=== PATIENT | female | born 1965 | race Caucasian/White ===

== ENCOUNTER → 2020-01-18 | Outpatient (CLI) | payer MEDICAID ==
[2017-12-11 15:18] VITALS: BP 139/74
[~2020-01-18] MED LIST: AMLO5TAB10 PO; ATOR20TA PO; FLUT1DIS5 IH; PROVENTIL HFA6.7 GM IH
--- NOTE | 2020-01-18 11:57 | CARD ---
MR#: [id number] Date of Study: 01/18/2020 Ordering Physician: KEN MARISCAL, Referring Physician: KEN MARISCAL, Tech: Macy Linares APPROVED REPORT EXAM: Two-dimensional and M-mode echocardiogram with Doppler and color Doppler. Other Information Quality : AverageHR: 61bpm Technically limited study due to body habitus. INDICATION Pre-Op RISK FACTORS Hypertension Hyperlipidemia Smoking 2D DIMENSIONS RVDd3.2 (2.9-3.5cm)Left Atrium(2D)3.3 (1.6-4.0cm) IVSd1.3 (0.7-1.1cm)Aortic Root(2D)2.6 (2.0-3.7cm) LVDd4.5 (3.9-5.9cm)LVOT Diameter1.9 (1.8-2.4cm) PWd1.1 (0.7-1.1cm)LVDs3.2 (2.5-4.0cm) FS (%) 27.5 %SV49.0 ml Aortic Valve AoV Peak Joe.141.5cm/sAoV VTI27.5cm AO Peak GR.8.0mmHgLVOT Peak Joe.115.9cm/s LVOT VTI 23.09cmAO Mean GR.4mmHg FROY (VMAX)1.11kw6WVJ (VTI)2.33cm2 Mitral Valve MV E Gcfbarte40.5cm/sMV DECEL MTWZ137yw MV A Tozxuvuz68.3cm/sMV E Mean Gr.1mmHg MV NGP13weL/A Ratio1.5 MVA (PHT)4.23cm2 TDI E/Lateral E'12.0E/Medial E'13.4 Pulmonary Valve PV Peak Evokknws01.6cm/sPV Peak Grad.4mmHg Tricuspid Valve TR P. Sxtlmfen214ff/sTR Peak Gr.21mmHg Pulmonary Vein S1 Jdaxsfbl31.4cm/sD2 Sqzdeprl51.5cm/s PVa szjjahct429exkr LEFT VENTRICLE The left ventricle is normal size. There is mild concentric left ventricular hypertrophy. The left ve ntricular systolic function is normal and the ejection fraction is within normal range. The Ejection Fraction is 50-55%. There is normal LV segmental wall motion. Transmitral Doppler flow pattern is Gra de II-pseudonormal filling dynamics. RIGHT VENTRICLE The right ventricle is normal size. There is normal right ventricular wall thickness. The right ventr icular systolic function is normal. ATRIA The left atrium size is normal. The right atrium size is normal. The interatrial septum is intact wit h no evidence for an atrial septal defect or patent foramen ovale as noted on 2-D or Doppler imaging. AORTIC VALVE The aortic valve is normal in structure and function. Doppler and Color Flow revealed trace aortic re gurgitation. There is no significant aortic valvular stenosis. Calculated aortic valve area is 1.90 c m2 with maximum pressure gradient of 10 mmHg and mean pressure gradient of 5 mmHg. MITRAL VALVE The mitral valve is normal in structure and function. There is no evidence of mitral valve prolapse. There is no mitral valve stenosis. Doppler and Color Flow revealed no mitral valve regurgitation note d. TRICUSPID VALVE The tricuspid valve is normal in structure and function. Doppler and Color Flow revealed trace tricus pid valve regurgitation with an estimated PAP of 24 mmHg. There is no tricuspid valve stenosis. PULMONIC VALVE The pulmonic valve is not well visualized. Doppler and Color Flow revealed no pulmonic valvular regur gitation. GREAT VESSELS The aortic root is normal in size. The ascending aorta is normal in size. The IVC is normal in size a nd collapses >50% with inspiration. PERICARDIAL EFFUSION There is no evidence of significant pericardial effusion. Critical Notification Critical Value: No <Conclusion> The left ventricle is normal size. The left ventricular systolic function is normal and the ejection fraction is within normal range. The Ejection Fraction is 50-55%. There is mild concentric left ventricular hypertrophy. Doppler and Color Flow revealed trace aortic regurgitation. There is no significant aortic valvular stenosis. Doppler and Color Flow revealed no mitral valve regurgitation noted. Doppler and Color Flow revealed trace tricuspid valve regurgitation with an estimated PAP of 24 mmHg. Signed by : Johnson Coronado MD Electronically Approved : 01/18/2020 11:56:48
== END | disposition home or self-care (01) ==
LOC: ECHO 09:00
PROVIDERS: ATTEND Internal Medicine Cardiovascular Disease
DX: Z01.810 Encounter for preprocedural cardiovascular examination (principal); I51.7 Cardiomegaly; I25.2 Old myocardial infarction; Z87.891 Personal history of nicotine dependence
CPT/HCPCS: 93306

== ENCOUNTER 2020-04-01 16:57 | Inpatient (IN) | payer MEDICAID ==
[~2020-04-01] VITALS: Ht 149.9 cm; Wt 94.1 kg
[~2020-04-01 16:57] MED LIST changes: +AMLO-186 PO; -AMLO5TAB10 PO
[2020-04-01] MEDS ORDERED: methylPREDNISolone SOD SUCC PF 125 MG/2 ML VIAL. IV ONE (17:45)
[2020-04-01 18:14] LABS: BASO % 1 % (0-3); EOS # 0.3 x10^3/uL (0.0-0.7); EOS % 5 % (0-3); HEMATOCRIT 37.6 % (36.0-47.0); HEMOGLOBIN 12.6 g/dL (12.0-15.5); LYMPH # 1.9 x10^3/uL (1.0-4.8); LYMPH % 34 % (24-48); MEAN CORPUSCULAR HEMOGLOBIN 32 pg (25-35); MEAN CORPUSCULAR HGB CONC 34 g/dL (31-37); MEAN CORPUSCULAR VOLUME 96 fL (79-100); MONO # 0.5 x10^3/uL (0.0-1.1); MONO % 9 % (0-9); NEUT # 2.8 x10^3/uL (1.8-7.7); NEUT % 51 % (31-73); PLATELET COUNT 200 x10^3/uL (140-400); RED BLOOD COUNT 3.93 x10^6/uL (3.50-5.40); RED CELL DISTRIBUTION WIDTH 13.3 % (11.5-14.5); WHITE BLOOD COUNT 5.5 x10^3/uL (4.0-11.0)
--- NOTE | 2020-04-01 18:16 | PHYS DOC ---
Past Medical History Past Medical History: Other Additional Past Medical Histor: cocaine abuse Past Surgical History: Other Additional Past Surgical Histo: dental, L shoulder, cataracts Smoking Status: Current Every Day Smoker Alcohol Use: None General Adult EDM: Chief Complaint: GENERALIZED BODY ACHES HPI: HPI: Patient is a 54 year old female who presents with cocaine relapse and usage 2 days ago. She then began having hand and lower leg swelling that is no longer there today. She also complains of dizziness, blurred vision, right chest sharp pain that radiates to the right arm that is intermittent, shortness of air, cough. Patient states 2 weeks ago she had tooth extractions, 2 months ago she had cataracts, February 25 she had shoulder replacement surgery. Patient is also a smoker. She denies any pain at this time. Review of Systems: Review of Systems: Constitutional: Denies fever or chills. [] Eyes: Denies change in visual acuity. [] HENT: Denies nasal congestion or sore throat. [] Respiratory: + cough or +shortness of breath. [] Cardiovascular: + chest pain or +edema. [] GI: Denies abdominal pain, nausea, vomiting, bloody stools or diarrhea. [] : Denies dysuria. [] Musculoskeletal: Denies back pain or joint pain. [] Integument: Denies rash. [] Neurologic: Denies headache, focal weakness or sensory changes. + Dizziness [] Endocrine: Denies polyuria or polydipsia. [] Lymphatic: Denies swollen glands. [] Psychiatric: Denies depression or anxiety. [] Heart Score: HEART Score for Chest Pain: HEART Score for Chest Pain Response (Comments) Value History Slighlty/Non-Suspicious 0 ECG Normal 0 Age >45 - < 65 1 Risk Factors 1 or 2 Risk Factors 1 Troponin < Normal Limit 0 Total 2 Risk Factors: Risk Factors: DM, Current or recent (<one month) smoker, HTN, HLP, family history of CAD, obesity. Risk Scores: Score 0 - 3: 2.5% MACE over next 6 weeks - Discharge Home Score 4 - 6: 20.3% MACE over next 6 weeks - Admit for Clinical Observation Score 7 - 10: 72.7% MACE over next 6 weeks - Early Invasive Strategies Current Medications: Current Medications Medications (Trade) Dose Ordered Sig/Osvaldo Start Time Stop Time Status Last Admin Dose Admin Methylprednisolone Sodium Succinate (SOLU-Medrol 125MG VIAL) 125 mg 1X ONCE 04/01/20 17:45 04/01/20 17:46 DC Allergies: Allergies: Allergies Coded Allergies Type Severity Reaction Last Updated Verified ciprofloxacin Allergy Severe rash 12/10/17 Yes morphine Allergy Severe red vein 12/10/17 Yes latex Allergy Intermediate Rash 12/10/17 Yes Physical Exam: PE: Constitutional: Well developed, well nourished, no acute distress, non-toxic appearance. [] HENT: Normocephalic, atraumatic, bilateral external ears normal, oropharynx moist, no oral exudates, nose normal. [] Eyes: PERRLA, EOMI, conjunctiva normal, no discharge. [] Neck: Normal range of motion, no tenderness, supple, no stridor. [] Cardiovascular:Heart rate regular rhythm, no murmur [] Lungs & Thorax: Bilateral upper breath sounds clear and lower diminished to auscultation [] Abdomen: Bowel sounds normal, soft, no tenderness, no masses, no pulsatile masses. [] Skin: Warm, dry, no erythema, no rash. [] Back: No tenderness, no CVA tenderness. [] Extremities: No tenderness, no cyanosis, no clubbing, ROM intact, no edema. [] Neurologic: Alert and oriented X 3, normal motor function, normal sensory function, no focal deficits noted. [] Psychologic: Affect normal, judgement normal, mood normal. [] Current Patient Data: Vital Signs: Vital Signs Date Time Temp Pulse Resp B/P (MAP) Pulse Ox O2 Delivery O2 Flow Rate FiO2 04/01/20 17:10 98.2 81 16 153/86 (108) 100 Room Air 98.2 EKG: EK and read by Dr. Rosenbaum as sinus rhythm and no STEMI. [] Radiology/Procedures: Radiology/Procedures: [] Impression: [facility] [address] [place] [address] IMAGING REPORT Signed PATIENT: OMER BRAVO ACCOUNT: [id number] : 1965 LOCATION: ER AGE: 54 SEX: F EXAM STATUS: REG ER ORD. PHYSICIAN: MARIAJOSE VELEZ APRN REASON: cough, soa 21 PROCEDURE: PORTABLE CHEST 1V Exam: Chest one view INDICATION: Cough TECHNIQUE: Frontal view of the chest Comparisons: None FINDINGS: Heart is enlarged. Pulmonary vessels are within normal limits. The lung and pleural spaces are clear. Left shoulder arthroplasty is noted. IMPRESSION: No acute pulmonary process. Electronically signed by: Rosaura Bui MD (04/01/2020 7:26 PM) [facility] DICTATED and SIGNED BY: ROSAURA BUI MD DATE: 04/01/201925 [facility] [address] [place] [address] IMAGING REPORT Signed PATIENT: OMER BRAVO ACCOUNT: [id number] : 1965 LOCATION: ER AGE: 54 SEX: F EXAM STATUS: REG ER ORD. PHYSICIAN: MARIAJOSE VELEZ APRN REASON: dizziness PROCEDURE: CT HEAD WO CONTRAST CT scan of the head without contrast 04/01/2020 Clinical History: Dizziness. Technique: Unenhanced, contiguous, 5 mm axial sections were obtained through the head. One or more of the following individualized dose reduction techniques were utilized for this study: 1. Automated exposure control. 2. Adjustment of the mA and/or kV according to patient size. 3. Use of iterative reconstruction technique. Findings: Comparison study is dated 11/16/2019. The ventricles and sulci are within normal limits in size and configuration. No acute parenchymal abnormality is seen. No extra-axial fluid collection is noted. No skull fracture is seen. Impression: No acute intracranial abnormality is seen. Electronically signed by: Esvin Dc MD (04/01/2020 7:00 PM) [id number] DICTATED and SIGNED BY: ESVIN DC MD DATE: 04/01/20 [id number] [place], [place] [id number] IMAGING REPORT Signed PATIENT: OMER BRAVO ACCOUNT: [id number] : 1965 LOCATION: ER AGE: 54 SEX: F EXAM STATUS: REG ER ORD. PHYSICIAN: MARIAJOSE VELEZ APRN REASON: check for dissection, soa, cough, chest pain, dizzy, high lactic and dimer PROCEDURE: CT ANGIO CHEST ABD PELVIS EXAM: CT CHEST WITH CONTRAST - PULMONARY ANGIOGRAM CT ABDOMEN AND PELVIS WITH CONTRAST INDICATION: Check per dissection. Shortness of breath, cough, chest pain, dizzy, high lactic acid d-dimer. COMPARISON: None TECHNIQUE: Helical CT of the chest abdomen, and pelvis performed after the administration of 100 mL Omnipaque 350 intravenous contrast in angiographic phase. Coronal and sagittal 3D MIP reformations were obtained. One or more of the following individualized dose reduction techniques were utilized for this examination: 1. Automated exposure control 2. Adjustment of the mA and/or kV according to patient size 3. Use of iterative reconstruction technique. FINDINGS: AORTA: The aorta is normal in caliber. No aortic dissection. No calcified atherosclerosis. Great vessel origins are widely patent. There is an aberrant right subclavian artery. Abdominal branch origins are widely patent. CHEST: Pulmonary Arteries: Contrast bolus is adequate. There is no acute pulmonary embolism. Heart/Systemic Vasculature: The heart is normal in size. No pericardial effusion. There are coronary artery calcifications. The thoracic aorta is normal in caliber. An aberrant right subclavian artery is noted. Mediastinum and kush: No lymphadenopathy. Lungs and pleura: The lungs are clear. No pleural effusion. Neck/Axilla/Body Wall: Unremarkable. Bones: No acute osseous abnormality. Mild thoracic degenerative disc disease. ABDOMEN AND PELVIS: Liver: Normal. Gallbladder/Biliary Tree: Gallbladder is mildly contracted. Bile ducts are normal. Pancreas: Normal. Spleen: Normal. Adrenal Glands: Normal. Kidneys/Ureters/Bladder: Kidneys are normal in size and enhance symmetrically. No hydronephrosis. And bladder are normal. Reproductive Organs: Uterus is anteverted. No adnexal mass. Stomach, small bowel, and colon: Stomach is normal. There is no small bowel obstruction. Colon and appendix are normal. Lymph Nodes: No lymphadenopathy. Peritoneum and retroperitoneum: No free fluid or free air. Bones: No acute osseous abnormality. Moderate lumbar degenerative disc disease, greatest at L3-L4 and L4-L5 where there is canal and foraminal narrowing. IMPRESSION: 1. No aortic dissection or aneurysm. No acute pulmonary embolism. 2. No acute abnormality in the chest, abdomen, or pelvis. 3. Moderate lumbar degenerative disc disease, greatest at L3-L4 and L4-L5 where there is canal and foraminal narrowing. Electronically signed by: Alyse Lyn MD (04/01/2020 8:25 PM) [id number] DICTATED and SIGNED BY: ALYSE LYN MD DATE: 04/01/202024 Course & Med Decision Making: Course & Med Decision Making Pertinent Labs and Imaging studies reviewed. (See chart for details) COVID-19 CRITERIA: The patient was evaluated during the global COVID-19 pandemic, and that diagnosis was suspected/considered upon their initial presentation. Their evaluation, treatment and testing was consistent with current guidelines for patients who present with complaints or symptoms that may be related to COVID-19. See HPI. No extremity edema. Lungs are clear in upper lobes and diminished in lower lobes. Speaks in full clear sentences. Skin pink warm and dry. Vital signs are within normal limits. Afebrile. Patient does have a wet loose sounding cough. EKG shows sinus rhythm and no STEMI. Lactic acid elevated, lipase elevated, urinalysis shows infection. She is also dehydrated. Patient is given fluids through her IV and Zosyn. CT abdomen pelvis shows no acute findings. Dr Carver states the patient has clinical pancreatitis. Patient admitted to Dr Kent for fluids. [] Adriana Disclaimer: Adriana Disclaimer: This electronic medical record was generated, in whole or in part, using a voice recognition dictation system. COVID-19 Patient Risks: Age 65 or older: No Sign of co-morbidity: Yes Exp to person + for COVID: No Exp to PUI: No Travel from affected area: No Lower respiratory symptoms: Yes Fever: Yes Other: No PPE Use: Full PPE with N95 mask or PAPR: Yes Departure Departure Impression: Primary Impression: Cocaine abuse Additional Impressions: Pancreatitis Qualified Codes: K85.90 - Acute pancreatitis without necrosis or infection, unspecified Urinary tract infection Qualified Codes: N39.0 - Urinary tract infection, site not specified Person under investigation for COVID-19 Disposition: 09 ADMITTED INPT THIS HOSP Admitting Physician: SHAHEEN Condition: STABLE Referrals: ROSY OLSON MD (PCP) MARIAJOSE VELEZ [employer] REPAIRER Apr 01, 2020 18:16
[2020-04-01 18:23] LABS: CALCIUM 8.2 mg/dL (8.5-10.1); CREATININE 0.8 mg/dL (0.6-1.0); GFR 75.3; POTASSIUM 3.2 mmol/L (3.5-5.1)
[2020-04-01 18:26] LABS: PROTHROMBIN TIME PATIENT 12.2 SEC (11.7-14.0)
[2020-04-01 18:29] LABS: ALBUMIN 2.8 g/dL (3.4-5.0); MAGNESIUM 1.8 mg/dL (1.8-2.4); TOTAL BILIRUBIN 0.2 mg/dL (0.2-1.0); TOTAL PROTEIN 5.6 g/dL (6.4-8.2)
[2020-04-01 18:30] LABS: D-DIMER 2.06 ug/mlFEU (0.00-0.50)
[2020-04-01] MEDS ORDERED: PIPERACILLIN/TAZOBACTAM 3.375 GM in IV NORMAL SALINE 50ML 50 ML IV ONE (19:00)
[2020-04-01] MEDS ORDERED: IV NORMAL SALINE 1000ML BAG 1,000 ML IV ONE ×2 (19:00→20:00)
--- NOTE | 2020-04-01 19:03 | RAD ---
CT scan of the head without contrast 04/01/2020 Clinical History: Dizziness. Technique: Unenhanced, contiguous, 5 mm axial sections were obtained through the head. One or more of the following individualized dose reduction techniques were utilized for this study: 1. Automated exposure control. 2. Adjustment of the mA and/or kV according to patient size. 3. Use of iterative reconstruction technique. Findings: Comparison study is dated 11/16/2019. The ventricles and sulci are within normal limits in size and configuration. No acute parenchymal abnormality is seen. No extra-axial fluid collection is noted. No skull fracture is seen. Impression: No acute intracranial abnormality is seen. Electronically signed by: Esvin Dc MD (04/01/2020 7:00 PM) [id number]
[2020-04-01] MEDS ORDERED: CONTRAST GIVEN. MC PRN (19:15)
[2020-04-01] MEDS ORDERED: IOHEXOL 350 MG/ML 100 ML VIAL. IV ONE (19:15)
[2020-04-01 19:29] LABS: BILIRUBIN,URINE NEGATIVE (NEG); CLARITY,URINE CLEAR; COLOR,URINE YELLOW; NITRITE,URINE NEGATIVE (NEG); PH,URINE 6.5 (<5.0-8.0); PROTEIN,URINE NEGATIVE (NEG-TRACE)
--- NOTE | 2020-04-01 19:29 | RAD ---
Exam: Chest one view INDICATION: Cough TECHNIQUE: Frontal view of the chest Comparisons: None FINDINGS: Heart is enlarged. Pulmonary vessels are within normal limits. The lung and pleural spaces are clear. Left shoulder arthroplasty is noted. IMPRESSION: No acute pulmonary process. Electronically signed by: Rosaura Perez MD (04/01/2020 7:26 PM) TOYA
[2020-04-01 19:35] LABS: BACTERIA,URINE MODERATE /HPF (0-FEW); RBC,URINE 0 /HPF (0-2); WBC,URINE 20-40 /HPF (0-4)
[2020-04-01 19:36] LABS: BARBITURATES NEG (NEG); BENZODIAZEPINES NEG (NEG); CANNABINOIDS NEG (NEG); COCAINE POS (NEG); METHADONE NEG (NEG); OPIATES NEG (NEG); PHENCYCLIDINE NEG (NEG)
[2020-04-01 19:41] LABS: AMPHETAMINE/METHAMPHETAMINE NEG (NEG)
[2020-04-01] MEDS ORDERED: cefTRIAXone IV Push 1 GM VIAL. IVP ONE (20:00)
--- NOTE | 2020-04-01 20:27 | RAD ---
EXAM: CT CHEST WITH CONTRAST - PULMONARY ANGIOGRAM CT ABDOMEN AND PELVIS WITH CONTRAST INDICATION: Check per dissection. Shortness of breath, cough, chest pain, dizzy, high lactic acid d-dimer. COMPARISON: None TECHNIQUE: Helical CT of the chest abdomen, and pelvis performed after the administration of 100 mL Omnipaque 350 intravenous contrast in angiographic phase. Coronal and sagittal 3D MIP reformations were obtained. One or more of the following individualized dose reduction techniques were utilized for this examination: 1. Automated exposure control 2. Adjustment of the mA and/or kV according to patient size 3. Use of iterative reconstruction technique. FINDINGS: AORTA: The aorta is normal in caliber. No aortic dissection. No calcified atherosclerosis. Great vessel origins are widely patent. There is an aberrant right subclavian artery. Abdominal branch origins are widely patent. CHEST: Pulmonary Arteries: Contrast bolus is adequate. There is no acute pulmonary embolism. Heart/Systemic Vasculature: The heart is normal in size. No pericardial effusion. There are coronary artery calcifications. The thoracic aorta is normal in caliber. An aberrant right subclavian artery is noted. Mediastinum and kush: No lymphadenopathy. Lungs and pleura: The lungs are clear. No pleural effusion. Neck/Axilla/Body Wall: Unremarkable. Bones: No acute osseous abnormality. Mild thoracic degenerative disc disease. ABDOMEN AND PELVIS: Liver: Normal. Gallbladder/Biliary Tree: Gallbladder is mildly contracted. Bile ducts are normal. Pancreas: Normal. Spleen: Normal. Adrenal Glands: Normal. Kidneys/Ureters/Bladder: Kidneys are normal in size and enhance symmetrically. No hydronephrosis. And bladder are normal. Reproductive Organs: Uterus is anteverted. No adnexal mass. Stomach, small bowel, and colon: Stomach is normal. There is no small bowel obstruction. Colon and appendix are normal. Lymph Nodes: No lymphadenopathy. Peritoneum and retroperitoneum: No free fluid or free air. Bones: No acute osseous abnormality. Moderate lumbar degenerative disc disease, greatest at L3-L4 and L4-L5 where there is canal and foraminal narrowing. IMPRESSION: 1. No aortic dissection or aneurysm. No acute pulmonary embolism. 2. No acute abnormality in the chest, abdomen, or pelvis. 3. Moderate lumbar degenerative disc disease, greatest at L3-L4 and L4-L5 where there is canal and foraminal narrowing. Electronically signed by: Alyse Lyn MD (04/01/2020 8:25 PM) [id number]
[2020-04-01] MEDS ORDERED: ONDANSETRON PF 4 MG/2 ML VIAL. IV PRN (21:00)
--- NOTE | 2020-04-01 22:31 | RAD ---
Exam: Left lower extremity venous duplex study INDICATION: Leg swelling TECHNIQUE: Using a combination of real-time ultrasound imaging and color-flow and pulse Doppler imaging techniques along with graded compression and augmentation, duplex evaluation of the deep venous systems of leftlower extremity was performed. Multiple images were obtained. Findings: There is no sonographic evidence for deep venous thrombosis involving the visualized deep venous structures of the left lower extremity. IMPRESSION: No acute DVT in the left lower extremities. Electronically signed by: Rosaura Perez MD (04/01/2020 10:28 PM) TOYA
[2020-04-02] VITALS (7 sets, daily range): BP systolic 127–161; BP diastolic 67–90
[2020-04-02] MEDS ORDERED: diphenhydrAMINE 50 MG/ML VIAL IVP ONE (02:00)
[2020-04-02] MEDS: IV NORMAL SALINE 1000ML BAG 1,000 ML IV SCH ×3 (02:01→12:51)
[2020-04-02] MEDS: fentaNYL PF VIAL 100 MCG/2 ML VIAL IV PRN ×3 (02:02→17:12)
[2020-04-02] MEDS ORDERED: OXYC1TAB19 PO (05:19)
[2020-04-02] MEDS ORDERED: vitamin d (05:19)
[2020-04-02] MEDS ORDERED: TRAZ-118 PO (05:19)
[2020-04-02] MEDS ORDERED: ALPR1TAB2 PO (05:19)
[2020-04-02] MEDS ORDERED: DULO30CA2 PO (05:19)
[2020-04-02] MEDS ORDERED: NAPR500T8 PO (05:19)
[2020-04-02] MEDS ORDERED: FURO-69 PO (05:19)
[2020-04-02] MEDS ORDERED: SPIR25TA5 PO (05:19)
[2020-04-02] MEDS ORDERED: CETI10TA74 PO (05:19)
--- NOTE | 2020-04-02 08:30 | NUR ---
patient wants flu shot when she is discharged
[2020-04-02] MEDS: diphenhydrAMINE 50 MG/ML VIAL IVP PRN ×2 (08:32→17:12)
[2020-04-02] MEDS ORDERED: FLU VACC QS 2020-21(6MOS+)/PF 0.5 ML SYRINGE. VAX IM ONE (09:00)
--- NOTE | 2020-04-02 12:34 | PDOC2 ---
GI CONSULT Date of Service: DATE: 04/02/20 TIME: 12:11 Reason For Consult: Elevated lipase HPI: HPI: 54 y/o female presented to ER with various complaints, including atypical chest pain. During evaluation, noted to have mildly elevated lipase and we were asked to see. No h/o pancreatitis. CT here OK save diverticulosis. Prior ultrasound at [facility] with adenomyosis/cholesterolosis of GB, but no stones. Will occasionally binge drink, but not daily drinker. Has had atypical chest pain; pain this occasion would transiently respond to SL NTG. Had cath in 2018 with moderate single vessel disease (LAD). Fairly frequent heartburn w/o dysphagia; really takes nothing for this. Treated empirically for "ulcer" years ago w/o documentation. Frequent pc bloating and early satiety. No prior EGD, but one planned in the future as part of pre- bariatric surgery w/u. No liver history, but concerned as father had HCV. Had hepatitis serologies at [facility] in September negative. Smokes. H/o cocaine abuse; briefly clean than recent relapse, precipitating current issues along with at least subjective extremity swelling. Fluctuating bowel habits from diarrhea to constipation. Cramps usually precede diarrhea and improved after purge. Has seen blood in stool, but not recently; has h/o hemorroids. Colonoscopy age 52 negative except diverticulosis. GIFH positive for colon polyps in both parents. Wt/appetite OK. Nearly daily AM dyspepsia and emesis. Ok if eats a little. PMH: PMH: NSTEMI 2018, cath as above, HTN, PTSD, depression, anxiety, asthma, OA, FMS. S/P x 2, right knee and left shoulder joint prostheses. Social History: ALCOHOL: occassional Drugs: Cocaine ROS: GEN: Denies fevers, chills, sweats HEENT: Some visual disturbance. CV: Atypical as above. RESP: Denies shortness of air, cough GI: Per HPI : Denies hematuria, dysuria ENDO: Denies weight changes NEURO: Denies confusion, dizziness MSK: Denies weakness, joint pain. Says recent extremities swelling SKIN: Denies jaundice, pruritus Vitals: Vitals: Vital Signs Date Time Temp Pulse Resp B/P (MAP) Pulse Ox O2 Delivery O2 Flow Rate FiO2 04/02/20 08:00 Room Air 04/02/20 07:00 96.9 78 20 150/89 (109) 97 96.9 Labs: Labs: Laboratory Tests Test 04/01/20 18:00 04/01/20 19:00 04/02/20 03:30 White Blood Count 5.5 x10^3/uL (4.0-11.0) Red Blood Count 3.93 x10^6/uL (3.50-5.40) Hemoglobin 12.6 g/dL (12.0-15.5) Hematocrit 37.6 % (36.0-47.0) Mean Corpuscular Volume 96 fL (79-100) Mean Corpuscular Hemoglobin 32 pg (25-35) Mean Corpuscular Hemoglobin Concent 34 g/dL (31-37) Red Cell Distribution Width 13.3 % (11.5-14.5) Platelet Count 200 x10^3/uL (140-400) Neutrophils (%) (Auto) 51 % (31-73) Lymphocytes (%) (Auto) 34 % (24-48) Monocytes (%) (Auto) 9 % (0-9) Eosinophils (%) (Auto) 5 % (0-3) Basophils (%) (Auto) 1 % (0-3) Neutrophils # (Auto) 2.8 x10^3/uL (1.8-7.7) Lymphocytes # (Auto) 1.9 x10^3/uL (1.0-4.8) Monocytes # (Auto) 0.5 x10^3/uL (0.0-1.1) Eosinophils # (Auto) 0.3 x10^3/uL (0.0-0.7) Basophils # (Auto) 0.0 x10^3/uL (0.0-0.2) Prothrombin Time 12.2 SEC (11.7-14.0) Prothromb Time International Ratio 0.9 (0.8-1.1) D-Dimer (Bonnie) 2.06 ug/mlFEU (0.00-0.50) Sodium Level 145 mmol/L (136-145) Potassium Level 3.2 mmol/L (3.5-5.1) Chloride Level 107 mmol/L (98-107) Carbon Dioxide Level 30 mmol/L (21-32) Anion Gap 8 (6-14) Blood Urea Nitrogen 11 mg/dL (7-20) Creatinine 0.8 mg/dL (0.6-1.0) Estimated GFR (Cockcroft-Gault) 75.3 BUN/Creatinine Ratio 14 (6-20) Glucose Level 197 mg/dL (70-99) Lactic Acid Level 3.3 mmol/L (0.4-2.0) 2.2 mmol/L (0.4-2.0) Calcium Level 8.2 mg/dL (8.5-10.1) Magnesium Level 1.8 mg/dL (1.8-2.4) Total Bilirubin 0.2 mg/dL (0.2-1.0) Aspartate Amino Transf (AST/SGOT) 14 U/L (15-37) Alanine Aminotransferase (ALT/SGPT) 23 U/L (14-59) Alkaline Phosphatase 101 U/L (46-116) Creatine Kinase 53 U/L (26-192) Troponin I Quantitative < 0.017 ng/mL (0.000-0.055) < 0.017 ng/mL (0.000-0.055) SS-Uvy-H-Type Natriuretic Peptide 546 pg/mL (0-124) Total Protein 5.6 g/dL (6.4-8.2) Albumin 2.8 g/dL (3.4-5.0) Albumin/Globulin Ratio 1.0 (1.0-1.7) Lipase 591 U/L (73-393) Urine Collection Type Unknown Urine Color Yellow Urine Clarity Clear Urine pH 6.5 (<5.0-8.0) Urine Specific Elk 1.025 (1.000-1.030) Urine Protein Negative mg/dL (NEG-TRACE) Urine Glucose (UA) 100 mg/dL (NEG) Urine Ketones (Stick) Negative mg/dL (NEG) Urine Blood Negative (NEG) Urine Nitrite Negative (NEG) Urine Bilirubin Negative (NEG) Urine Urobilinogen Dipstick 1.0 mg/dL (0.2 mg/dL) Urine Leukocyte Esterase Moderate (NEG) Urine RBC 0 /HPF (0-2) Urine WBC 20-40 /HPF (0-4) Urine Squamous Epithelial Cells Mod /LPF Urine Bacteria Moderate /HPF (0-FEW) Urine Mucus Mod /LPF Urine Opiates Screen Neg (NEG) Urine Methadone Screen Neg (NEG) Urine Barbiturates Neg (NEG) Urine Phencyclidine Screen Neg (NEG) Urine Amphetamine/Methamphetamine Neg (NEG) Urine Benzodiazepines Screen Neg (NEG) Urine Cocaine Screen Pos (NEG) Urine Cannabinoids Screen Neg (NEG) Urine Ethyl Alcohol Neg (NEG) Mildly elevated lipase, less than 3x normal. Tox screen positive for cocaine. Normal troponins. Allergies: Coded Allergies: ciprofloxacin (Verified Allergy, Severe, rash, 12/10/17) morphine (Verified Allergy, Severe, red vein, 12/10/17) latex (Verified Allergy, Intermediate, Rash, 12/10/17) Medications: Current Medications Medications (Trade) Dose Ordered Sig/Osvaldo Route PRN Reason Start Time Stop Time Status Last Admin Dose Admin Methylprednisolone Sodium Succinate (SOLU-Medrol 125MG VIAL) 125 mg 1X ONCE IV 04/01/20 17:45 04/01/20 17:46 DC 04/01/20 18:36 Sodium Chloride 1,000 ml @ 1,000 mls/hr 1X ONCE IV 04/01/20 19:00 04/01/20 19:59 DC 04/01/20 19:14 Piperacillin Sod/ Tazobactam Sod 3.375 gm/Sodium Chloride 50 ml @ 100 mls/hr 1X ONCE IV 04/01/20 19:00 04/01/20 19:29 DC 04/01/20 19:15 Iohexol (Omnipaque 350 Mg/ml) 100 ml 1X ONCE IV 04/01/20 19:15 04/01/20 19:16 DC 04/01/20 19:38 Sodium Chloride 1,000 ml @ 1,000 mls/hr 1X ONCE IV 04/01/20 20:00 04/01/20 20:59 DC 04/01/20 21:05 Fentanyl Citrate (Fentanyl 2ml Vial) 50 mcg PRN Q1HR PRN IV PAIN 04/01/20 21:00 04/02/20 20:59 04/02/20 02:02 Sodium Chloride 1,000 ml @ 125 mls/hr Q8H IV 04/01/20 20:51 04/02/20 20:50 04/02/20 08:32 Diphenhydramine HCl (Benadryl) 50 mg 1X ONCE IVP 04/02/20 02:00 04/02/20 02:01 DC 04/02/20 02:01 Diphenhydramine HCl (Benadryl) 25 mg PRN Q6HRS PRN IVP ITCHING 04/02/20 02:00 04/02/20 08:32 PE: GEN: NAD HEENT: Atraumatic, PERRLA LUNGS: CTAB HEART: RRR, no murmurs ABD: NABS, S/ND/mild upper abdominal tenderness, no masses EXTREMITY: No edema SKIN: No rashes, no jaundice NEURO/PSYCH: A & O 3 A/P: A/P: IMP: Elevated lipase of uncertain significance. Clinically don't believe this is pancreatitis with bad story, normal imaging, and <3x normal lipase. GERD; may account for the chest pain as well. Untreated. Esophageal chest pain may respond to NTG. IBS Diverticulosis, uncomplicated. FH colon polyp; UTD on screening. Abnormal GB on imaging, but no stones. REC: PPI empirically. Would consider cardiology opinion. OK with me to feed. Does merit EGD sometime; no crow. Stop cocaine use. ELLIE JOHNSON MD Apr 02, 2020 12:34
--- NOTE | 2020-04-02 13:29 | PDOC1 ---
History and Physical Date of Admission Date of Admission DATE: 04/02/20 TIME: 13:26 Identification/Chief Complaint Chief Complaint Chest radiograph Heart is enlarged. Pulmonary vessels are within normal limits. The lung and pleural spaces are clear. Left shoulder arthroplasty is noted. IMPRESSION: No acute pulmonary process. CT scan of the head without contrast 04/01/2020 The ventricles and sulci are within normal limits in size and configuration. No acute parenchymal abnormality is seen. No extra-axial fluid collection is noted. No skull fracture is seen. Impression: No acute intracranial abnormality is seen. CT CHEST WITH CONTRAST - PULMONARY ANGIOGRAM CT ABDOMEN AND PELVIS WITH CONTRAST AORTA: The aorta is normal in caliber. No aortic dissection. No calcified atherosclerosis. Great vessel origins are widely patent. There is an aberrant right subclavian artery. Abdominal branch origins are widely patent. CHEST: Pulmonary Arteries: Contrast bolus is adequate. There is no acute pulmonary embolism. Heart/Systemic Vasculature: The heart is normal in size. No pericardial effusion. There are coronary artery calcifications. The thoracic aorta is normal in caliber. An aberrant right subclavian artery is noted. Mediastinum and kush: No lymphadenopathy. Lungs and pleura: The lungs are clear. No pleural effusion. Neck/Axilla/Body Wall: Unremarkable. Bones: No acute osseous abnormality. Mild thoracic degenerative disc disease. ABDOMEN AND PELVIS: Liver: Normal. Gallbladder/Biliary Tree: Gallbladder is mildly contracted. Bile ducts are normal. Pancreas: Normal. Spleen: Normal. Adrenal Glands: Normal. Kidneys/Ureters/Bladder: Kidneys are normal in size and enhance symmetrically. No hydronephrosis. And bladder are normal. Reproductive Organs: Uterus is anteverted. No adnexal mass. Stomach, small bowel, and colon: Stomach is normal. There is no small bowel obstruction. Colon and appendix are normal. Lymph Nodes: No lymphadenopathy. Peritoneum and retroperitoneum: No free fluid or free air. Bones: No acute osseous abnormality. Moderate lumbar degenerative disc disease, greatest at L3-L4 and L4-L5 where there is canal and foraminal narrowing. IMPRESSION: 1. No aortic dissection or aneurysm. No acute pulmonary embolism. 2. No acute abnormality in the chest, abdomen, or pelvis. 3. Moderate lumbar degenerative disc disease, greatest at L3-L4 and L4-L5 where there is canal and foraminal narrowing. Source Source: Patient History of Present Illness History of Present Illness Ms Burgos is a 54 yo F w/ PMHx polysubstance abuse, Hypertension, hyperlipidemia, bronchial asthma/COPD who presents with cocaine relapse and usage 2 days prior to. She then began having hand and lower leg swelling that is no longer there today. She also complains of dizziness, blurred vision, right chest sharp pain that radiates to the right arm that is intermittent, shortness of air, cough. Patient states 2 weeks ago she had tooth extractions, 2 months ago she had catar acts, February 25 she had shoulder replacement surgery. Patient is also a smoker. She still has abdominal pain but is asking for food. EKG sinus rhythm and no STEMI. This radiograph, CT angiogram chest abdomen pelvis both negative for acute findings. CT head negative for acute findings. Labs with elevated lipase, K3.2, urine drug screen positive for cocaine, troponin negative x2, lactic acid elevated. She has history of coronary artery disease status post myocardial infarction 20 years ago related to cocaine abuse. The patient has also nicotine dependence, alcohol abuse and cocaine abuse. Cardiac cath in 2018 with minimal LAD disease, no interventions at that time, counseled on cocaine cessation. She is admitted for further care Past Medical History Cardiovascular: CAD, HTN, Hyperlipidemia Pulmonary: Asthma GI: GERD Endocrine: Other Past Surgical History Past Surgical History: , Other Family History Family History: Heart Disease Social History Smoke: 1 pack per day ALCOHOL: occassional Drugs: Cocaine Current Problem List Problem List Problems Medical Problems: (1) Pancreatitis Status: Acute (2) Person under investigation for COVID-19 Status: Acute (3) Urinary tract infection Status: Acute Current Medications Current Medications Current Medications Methylprednisolone Sodium Succinate (SOLU-Medrol 125MG VIAL) 125 mg 1X ONCE IV Last administered on 04/01/20at 18:36; Start 04/01/20 at 17:45; Stop 04/01/20 at 17:46; Status DC Sodium Chloride 1,000 ml @ 1,000 mls/hr 1X ONCE IV Last administered on 04/01/20at 19:14; Start 04/01/20 at 19:00; Stop 04/01/20 at 19:59; Status DC Piperacillin Sod/ Tazobactam Sod 3.375 gm/Sodium Chloride 50 ml @ 100 mls/hr 1X ONCE IV Last administered on 04/01/20at 19:15; Start 04/01/20 at 19:00; Stop 04/01/20 at 19:29; Status DC Iohexol (Omnipaque 350 Mg/ml) 100 ml 1X ONCE IV Last administered on 04/01/20at 19:38; Start 04/01/20 at 19:15; Stop 04/01/20 at 19:16; Status DC Info (CONTRAST GIVEN -- Rx MONITORING) 1 each PRN DAILY PRN MC SEE COMMENTS; Start 04/01/20 at 19:15; Stop 04/03/20 at 19:14 Ceftriaxone Sodium (Rocephin) 1 gm 1X ONCE IVP ; Start 04/01/20 at 20:00; Stop 04/01/20 at 20:01; Status UNV Sodium Chloride 1,000 ml @ 1,000 mls/hr 1X ONCE IV Last administered on 04/01/20at 21:05; Start 04/01/20 at 20:00; Stop 04/01/20 at 20:59; Status DC Ondansetron HCl (Zofran) 4 mg PRN Q8HRS PRN IV NAUSEA/VOMITING; Start 04/01/20 at 21:00; Stop 04/02/20 at 20:59 Fentanyl Citrate (Fentanyl 2ml Vial) 50 mcg PRN Q1HR PRN IV PAIN Last administered on 04/02/20at 02:02; Start 04/01/20 at 21:00; Stop 04/02/20 at 20:59 Sodium Chloride 1,000 ml @ 125 mls/hr Q8H IV Last administered on 04/02/20at 08:32; Start 04/01/20 at 20:51; Stop 04/02/20 at 20:50 Diphenhydramine HCl (Benadryl) 50 mg 1X ONCE IVP Last administered on 04/02/20at 02:01; Start 04/02/20 at 02:00; Stop 04/02/20 at 02:01; Status DC Diphenhydramine HCl (Benadryl) 25 mg PRN Q6HRS PRN IVP ITCHING Last administered on 04/02/20at 08:32; Start 04/02/20 at 02:00 Influenza Virus Vaccine Quadrival (Fluzone Quad Syringe) 0.5 ml ONCE ONCE VAX IM ; Start 04/02/20 at 09:00; Stop 11/14/20 at 09:01; Status DC Pantoprazole Sodium (Protonix) 40 mg DAILYAC PO ; Start 04/02/20 at 13:30 Active Scripts Active Reported Naproxen 500 Mg Tablet.dr 1 Tab PO DAILY Percocet 7.5-325 Mg Tablet (Oxycodone/Acetaminophen) 1 Each Tablet 1 Tab PO PRN TID PRN MDD 3 Tablet(s) 30 Days [vitamin d] Xanax (Alprazolam) 1 Mg Tablet 1 Tab PO TID PRN Trazodone Hcl 50 Mg Tablet 1 Tab PO QHS Zyrtec (Cetirizine Hcl) 10 Mg Tablet 1 Tab PO DAILY Lasix (Furosemide) 20 Mg Tablet 1 Tab PO DAILY 30 Days Cymbalta (Duloxetine Hcl) 30 Mg Capsule.dr 30 Mg PO BID Spironolactone 25 Mg Tablet 1 Tab PO DAILY Advair 500-50 Diskus (Fluticasone/Salmeterol) 1 Each Disk.w.dev 1 Puff IH BID Proventil Hfa Inhaler (Albuterol Sulfate) 6.7 Gm Hfa.aer.ad 1 Puff IH PRN Q4HRS PRN Allergies Allergies: Coded Allergies: ciprofloxacin (Verified Allergy, Severe, rash, 12/10/17) morphine (Verified Allergy, Severe, red vein, 12/10/17) latex (Verified Allergy, Intermediate, Rash, 12/10/17) ROS General: YES: Fatigue, Malaise; No: Chills, Night Sweats, Appetite, Other PSYCHOLOGICAL ROS: No: Anxiety, Behavioral Disorder, Concentration difficultie, Decreased libido, Depression, Disorientation, Hallucinations, Hostility, Irritablity, Memory difficulties, Mood Swings, Obsessive thoughts, Physical abuse, Sexual abuse, Sleep disturbances, Suicidal ideation, Other Eyes: No Blurry vision, No Decreased vision, No Double vision, No Dry eyes, No Excessive tearing, No Eye Pain, No Itchy Eyes, No Loss of vision, No Photophobia, No Scotomata, No Uses contacts, No Uses glasses, No Other HEENT: No: Heacaches, Visual Changes, Hearing change, Nasal congestion, Nasal discharge, Oral lesions, Sinus pain, Sore Throat, Epistaxis, Sneezing, Snoring, Tinnitus, Vertigo, Vocal changes, Other ALLERGY AND IMMUNOLOGY: No: Hives, Insect Bite Sensitivity, Itchy/Watery Eyes, Nasal Congestion, Post Nasal Drip, Seasonal Allergies, Other Hematological and Lymphatic: No: Bleeding Problems, Blood Clots, Blood Transfusions, Brusing, Night Sweats, Pallor, Swollen Lymph Nodes, Other ENDOCRINE: No: Breast Changes, Galactorrhea, Hair Pattern Changes, Hot Flashes, Malaise/lethargy, Mood Swings, Palpitations, Polydipsia/polyuria, Skin Changes, Temperature Intolerance, Unexpected Weight Changes, Other Breast: No New/Changing Breast Lumps, No Nipple changes, No Nipple discharge, No Other Respiratory: No: Cough, Hemoptysis, Orthopnea, Pleuritic Pain, Shortness of breath, SOB with excertion, Sputum Changes, Stridor, Tachypnea, Wheezing, Other Cardiovascular: No Chest Pain, No Palpitations, No Orthopnea, No Paroxysmal Noc. Dyspnea, No Edema, No Lt Headedness, No Other Gastrointestinal: No Nausea, No Vomiting, No Abdominal Pain, No Diarrhea, No Constipation, No Melena, No Hematochezia, No Other Genitourinary: No Dysuria, No Frequency, No Incontinence, No Hematuria, No Retention, No Discharge, No Urgency, No Pain, No Flank Pain, No Other, No , No , No , No , No , No , No Musculoskeletal: No Gait Disturbance, No Joint Pain, No Joint Stiffness, No Joint Swelling, No Muscle Pain, No Muscular Weakness, No Pain In:, No Swelling In:, No Other Neurological: No Behavorial Changes, No Bowel/Bladder ControlChng, No Confu rashard, No Dizziness, No Gait Disturbance, No Headaches, No Impaired Coord/balance, No Memory Loss, No Numbness/Tingling, No Seizures, No Speech Problems, No Tremors, No Visual Changes, No Weakness, No Other Skin: No Dry Skin, No Eczema, No Hair Changes, No Lumps, No Mole Changes, No Mottling, No Nail Changes, No Pruritus, No Rash, No Skin Lesion Changes, No Oth er, No Acne Physical Exam General: Alert, Oriented X3, Cooperative, mild distress HEENT: Atraumatic, PERRLA, EOMI, Mucous membr. moist/pink Lungs: Clear to auscultation, Normal air movement Heart: S1S2, RRR, no thrills, no rubs, no gallops, no murmurs Abdomen: Normal bowel sounds, Soft, No hepatosplenomegaly, No masses, Other (diffusely tender) Rectal Exam: not examined Extremities: No clubbing, No cyanosis, No edema, Normal pulses, No tenderness/swelling Skin: No rashes, No breakdown, No significant lesion Neuro: Normal gait, Normal speech, Strength at 5/5 X4 ext, Normal tone, Sensation intact, Cranial nerves 3-12 NL, Reflexes 2+ Psych/Mental Status: Mental status NL, Mood NL Vitals Vitals Vital Signs Date Time Temp Pulse Resp B/P (MAP) Pulse Ox O2 Delivery O2 Flow Rate FiO2 04/02/20 08:00 Room Air 04/02/20 07:00 96.9 78 20 150/89 (109) 97 96.9 Labs Labs Laboratory Tests Test 04/01/20 18:00 04/01/20 19:00 04/02/20 03:30 White Blood Count 5.5 x10^3/uL (4.0-11.0) Red Blood Count 3.93 x10^6/uL (3.50-5.40) Hemoglobin 12.6 g/dL (12.0-15.5) Hematocrit 37.6 % (36.0-47.0) Mean Corpuscular Volume 96 fL (79-100) Mean Corpuscular Hemoglobin 32 pg (25-35) Mean Corpuscular Hemoglobin Concent 34 g/dL (31-37) Red Cell Distribution Width 13.3 % (11.5-14.5) Platelet Count 200 x10^3/uL (140-400) Neutrophils (%) (Auto) 51 % (31-73) Lymphocytes (%) (Auto) 34 % (24-48) Monocytes (%) (Auto) 9 % (0-9) Eosinophils (%) (Auto) 5 % (0-3) Basophils (%) (Auto) 1 % (0-3) Neutrophils # (Auto) 2.8 x10^3/uL (1.8-7.7) Lymphocytes # (Auto) 1.9 x10^3/uL (1.0-4.8) Monocytes # (Auto) 0.5 x10^3/uL (0.0-1.1) Eosinophils # (Auto) 0.3 x10^3/uL (0.0-0.7) Basophils # (Auto) 0.0 x10^3/uL (0.0-0.2) Prothrombin Time 12.2 SEC (11.7-14.0) Prothromb Time International Ratio 0.9 (0.8-1.1) D-Dimer (Bonnie) 2.06 ug/mlFEU (0.00-0.50) Sodium Level 145 mmol/L (136-145) Potassium Level 3.2 mmol/L (3.5-5.1) Chloride Level 107 mmol/L (98-107) Carbon Dioxide Level 30 mmol/L (21-32) Anion Gap 8 (6-14) Blood Urea Nitrogen 11 mg/dL (7-20) Creatinine 0.8 mg/dL (0.6-1.0) Estimated GFR (Cockcroft-Gault) 75.3 BUN/Creatinine Ratio 14 (6-20) Glucose Level 197 mg/dL (70-99) Lactic Acid Level 3.3 mmol/L (0.4-2.0) 2.2 mmol/L (0.4-2.0) Calcium Level 8.2 mg/dL (8.5-10.1) Magnesium Level 1.8 mg/dL (1.8-2.4) Total Bilirubin 0.2 mg/dL (0.2-1.0) Aspartate Amino Transf (AST/SGOT) 14 U/L (15-37) Alanine Aminotransferase (ALT/SGPT) 23 U/L (14-59) Alkaline Phosphatase 101 U/L (46-116) Creatine Kinase 53 U/L (26-192) Troponin I Quantitative < 0.017 ng/mL (0.000-0.055) < 0.017 ng/mL (0.000-0.055) RO-Klv-L-Type Natriuretic Peptide 546 pg/mL (0-124) Total Protein 5.6 g/dL (6.4-8.2) Albumin 2.8 g/dL (3.4-5.0) Albumin/Globulin Ratio 1.0 (1.0-1.7) Lipase 591 U/L (73-393) Urine Collection Type Unknown Urine Color Yellow Urine Clarity Clear Urine pH 6.5 (<5.0-8.0) Urine Specific [place] 1.025 (1.000-1.030) Urine Protein Negative mg/dL (NEG-TRACE) Urine Glucose (UA) 100 mg/dL (NEG) Urine Ketones (Stick) Negative mg/dL (NEG) Urine Blood Negative (NEG) Urine Nitrite Negative (NEG) Urine Bilirubin Negative (NEG) Urine Urobilinogen Dipstick 1.0 mg/dL (0.2 mg/dL) Urine Leukocyte Esterase Moderate (NEG) Urine RBC 0 /HPF (0-2) Urine WBC 20-40 /HPF (0-4) Urine Squamous Epithelial Cells Mod /LPF Urine Bacteria Moderate /HPF (0-FEW) Urine Mucus Mod /LPF Urine Opiates Screen Neg (NEG) Urine Methadone Screen Neg (NEG) Urine Barbiturates Neg (NEG) Urine Phencyclidine Screen Neg (NEG) Urine Amphetamine/Methamphetamine Neg (NEG) Urine Benzodiazepines Screen Neg (NEG) Urine Cocaine Screen Pos (NEG) Urine Cannabinoids Screen Neg (NEG) Urine Ethyl Alcohol Neg (NEG) Laboratory Tests Test 04/01/20 18:00 04/01/20 19:00 04/02/20 03:30 White Blood Count 5.5 x10^3/uL (4.0-11.0) Red Blood Count 3.93 x10^6/uL (3.50-5.40) Hemoglobin 12.6 g/dL (12.0-15.5) Hematocrit 37.6 % (36.0-47.0) Mean Corpuscular Volume 96 fL (79-100) Mean Corpuscular Hemoglobin 32 pg (25-35) Mean Corpuscular Hemoglobin Concent 34 g/dL (31-37) Red Cell Distribution Width 13.3 % (11.5-14.5) Platelet Count 200 x10^3/uL (140-400) Neutrophils (%) (Auto) 51 % (31-73) Lymphocytes (%) (Auto) 34 % (24-48) Monocytes (%) (Auto) 9 % (0-9) Eosinophils (%) (Auto) 5 % (0-3) Basophils (%) (Auto) 1 % (0-3) Neutrophils # (Auto) 2.8 x10^3/uL (1.8-7.7) Lymphocytes # (Auto) 1.9 x10^3/uL (1.0-4.8) Monocytes # (Auto) 0.5 x10^3/uL (0.0-1.1) Eosinophils # (Auto) 0.3 x10^3/uL (0.0-0.7) Basophils # (Auto) 0.0 x10^3/uL (0.0-0.2) Prothrombin Time 12.2 SEC (11.7-14.0) Prothromb Time International Ratio 0.9 (0.8-1.1) D-Dimer (Bonnie) 2.06 ug/mlFEU (0.00-0.50) Sodium Level 145 mmol/L (136-145) Potassium Level 3.2 mmol/L (3.5-5.1) Chloride Level 107 mmol/L (98-107) Carbon Dioxide Level 30 mmol/L (21-32) Anion Gap 8 (6-14) Blood Urea Nitrogen 11 mg/dL (7-20) Creatinine 0.8 mg/dL (0.6-1.0) Estimated GFR (Cockcroft-Gault) 75.3 BUN/Creatinine Ratio 14 (6-20) Glucose Level 197 mg/dL (70-99) Lactic Acid Level 3.3 mmol/L (0.4-2.0) 2.2 mmol/L (0.4-2.0) Calcium Level 8.2 mg/dL (8.5-10.1) Magnesium Level 1.8 mg/dL (1.8-2.4) Total Bilirubin 0.2 mg/dL (0.2-1.0) Aspartate Amino Transf (AST/SGOT) 14 U/L (15-37) Alanine Aminotransferase (ALT/SGPT) 23 U/L (14-59) Alkaline Phosphatase 101 U/L (46-116) Creatine Kinase 53 U/L (26-192) Troponin I Quantitative < 0.017 ng/mL (0.000-0.055) < 0.017 ng/mL (0.000-0.055) JK-Tvc-V-Type Natriuretic Peptide 546 pg/mL (0-124) Total Protein 5.6 g/dL (6.4-8.2) Albumin 2.8 g/dL (3.4-5.0) Albumin/Globulin Ratio 1.0 (1.0-1.7) Lipase 591 U/L (73-393) Urine Collection Type Unknown Urine Color Yellow Urine Clarity Clear Urine pH 6.5 (<5.0-8.0) Urine Specific [place] 1.025 (1.000-1.030) Urine Protein Negative mg/dL (NEG-TRACE) Urine Glucose (UA) 100 mg/dL (NEG) Urine Ketones (Stick) Negative mg/dL (NEG) Urine Blood Negative (NEG) Urine Nitrite Negative (NEG) Urine Bilirubin Negative (NEG) Urine Urobilinogen Dipstick 1.0 mg/dL (0.2 mg/dL) Urine Leukocyte Esterase Moderate (NEG) Urine RBC 0 /HPF (0-2) Urine WBC 20-40 /HPF (0-4) Urine Squamous Epithelial Cells Mod /LPF Urine Bacteria Moderate /HPF (0-FEW) Urine Mucus Mod /LPF Urine Opiates Screen Neg (NEG) Urine Methadone Screen Neg (NEG) Urine Barbiturates Neg (NEG) Urine Phencyclidine Screen Neg (NEG) Urine Amphetamine/Methamphetamine Neg (NEG) Urine Benzodiazepines Screen Neg (NEG) Urine Cocaine Screen Pos (NEG) Urine Cannabinoids Screen Neg (NEG) Urine Ethyl Alcohol Neg (NEG) Images Images Chest radiograph Heart is enlarged. Pulmonary vessels are within normal limits. The lung and pleural spaces are clear. Left shoulder arthroplasty is noted. IMPRESSION: No acute pulmonary process. CT scan of the head without contrast 04/01/2020 The ventricles and sulci are within normal limits in size and configuration. No acute parenchymal abnormality is seen. No extra-axial fluid collection is noted. No skull fracture is seen. Impression: No acute intracranial abnormality is seen. CT CHEST WITH CONTRAST - PULMONARY ANGIOGRAM CT ABDOMEN AND PELVIS WITH CONTRAST AORTA: The aorta is normal in caliber. No aortic dissection. No calcified atherosclerosis. Great vessel origins are widely patent. There is an aberrant right subclavian artery. Abdominal branch origins are widely patent. CHEST: Pulmonary Arteries: Contrast bolus is adequate. There is no acute pulmonary embolism. Heart/Systemic Vasculature: The heart is normal in size. No pericardial effusion. There are coronary artery calcifications. The thoracic aorta is normal in caliber. An aberrant right subclavian artery is noted. Mediastinum and kush: No lymphadenopathy. Lungs and pleura: The lungs are clear. No pleural effusion. Neck/Axilla/Body Wall: Unremarkable. Bones: No acute osseous abnormality. Mild thoracic degenerative disc disease. ABDOMEN AND PELVIS: Liver: Normal. Gallbladder/Biliary Tree: Gallbladder is mildly contracted. Bile ducts are normal. Pancreas: Normal. Spleen: Normal. Adrenal Glands: Normal. Kidneys/Ureters/Bladder: Kidneys are normal in size and enhance symmetrically. No hydronephrosis. And bladder are normal. Reproductive Organs: Uterus is anteverted. No adnexal mass. Stomach, small bowel, and colon: Stomach is normal. There is no small bowel obstruction. Colon and appendix are normal. Lymph Nodes: No lymphadenopathy. Peritoneum and retroperitoneum: No free fluid or free air. Bones: No acute osseous abnormality. Moderate lumbar degenerative disc disease, greatest at L3-L4 and L4-L5 where there is canal and foraminal narrowing. IMPRESSION: 1. No aortic dissection or aneurysm. No acute pulmonary embolism. 2. No acute abnormality in the chest, abdomen, or pelvis. 3. Moderate lumbar degenerative disc disease, greatest at L3-L4 and L4-L5 where there is canal and foraminal narrowing. VTE Prophylaxis Ordered VTE Prophylaxis Devices: No VTE Pharmacological Prophylaxi: Yes Assessment/Plan Assessment/Plan A/P: Intractable abdominal pain - likely cocaine induced pancreatitis. GI consulted, NPO Cocaine intoxication - counseled on cessation . PAT team consult Hypokalemia - will replace, check mag Hypertension - cont meds Hyperlipidemia - cont statin Bronchial asthma/COPD - prn albuterol inhaler FEN- NPO PPX - lovenox FULL CODE Dispo - inpatient COVID-19 CRITERIA: The patient was evaluated during the global COVID-19 pandemic, and that diagnosis was suspected/considered upon their initial presentation. Their evaluation, treatment and testing was consistent with current guidelines for patients who present with complaints or symptoms that may be related to COVID-19. Justifications for Admission Other Justification REYNA HAYES MD Apr 02, 2020 13:29
[2020-04-02] MEDS: PANTOPRAZOLE 40 MG TABLET.DR. PO SCH (13:30)
[2020-04-02] MEDS ORDERED: PANTOPRAZOLE IV PUSH 40 MG VIAL. IVP ONE (14:30)
[2020-04-02] MEDS ORDERED: BUDESONIDE 0.5 MG/2 ML NEBU. NEB SCH ×2 (15:45→20:00)
[2020-04-02] MEDS ORDERED: POTASSIUM CL 20MEQ D5-0.45NACL 1,000 ML IV ONE (15:45)
[2020-04-02] MEDS ORDERED: ALBUTEROL SULFATE 2.5 MG/3 ML NEBU. NEB SCH (16:00)
[2020-04-02] MEDS ORDERED: ALBUTEROL SULFATE 8GM INHALER. INH PRN (16:00)
[2020-04-02] MEDS: SPIRONOLACTONE 25 MG TABLET PO SCH (17:00)
[2020-04-02] MEDS: CETIRIZINE HCL 10 MG TABLET. PO SCH (17:00)
[2020-04-02] MEDS ORDERED: NON FORMULARY ITEM (Fluticasone/Salmeterol (Advair 500-50 Diskus) 1 PUFF) IH SCH (21:00)
[2020-04-02] MEDS: DULoxetine HCL 30 MG CAPSULE.DR PO SCH (21:48)
[2020-04-02] MEDS: traZODone 50 MG TABLET. PO SCH (21:48)
[2020-04-02] MEDS: fentaNYL PF VIAL 100 MCG/2 ML VIAL IVP PRN (22:27)
[2020-04-02] MEDS: CLOTRIMAZOLE 1% VAGINAL CREAM 45GM TUBE. VG SCH (22:27)
[2020-04-03 03:00] VITALS: BP 157/93
[2020-04-03 05:49] LABS: ALBUMIN 2.6 g/dL (3.4-5.0); ALBUMIN/GLOBULIN RATIO 0.9 (1.0-1.7); CALCIUM 8.2 mg/dL (8.5-10.1); CREATININE 0.6 mg/dL (0.6-1.0); POTASSIUM 3.3 mmol/L (3.5-5.1); TOTAL BILIRUBIN 0.3 mg/dL (0.2-1.0); TOTAL PROTEIN 5.5 g/dL (6.4-8.2)
[2020-04-03 07:25] VITALS: BP 191/96
[2020-04-03] MEDS: PANTOPRAZOLE 40 MG TABLET.DR. PO SCH (07:30)
[2020-04-03] MEDS: SPIRONOLACTONE 25 MG TABLET PO SCH (08:23)
[2020-04-03] MEDS: fentaNYL PF VIAL 100 MCG/2 ML VIAL IVP PRN ×2 (08:23→19:49)
[2020-04-03] MEDS: DULoxetine HCL 30 MG CAPSULE.DR PO SCH ×2 (08:23→19:49)
[2020-04-03] MEDS: diphenhydrAMINE 50 MG/ML VIAL IVP PRN ×2 (08:23→19:49)
[2020-04-03] MEDS: CETIRIZINE HCL 10 MG TABLET. PO SCH (08:24)
--- NOTE | 2020-04-03 08:37 | PDOC ---
[facility] [employer] PROGRESS NOTE Date of Service DOS: DATE: 04/03/20 TIME: 08:34 Chief Complaint Chief Complaint A/P: Pancreatitis - with Intractable abdominal pain - likely cocaine induced pancreatitis. GI consulted, NPO Cocaine intoxication - counseled on cessation . 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 She then began having hand and lower leg swelling that is no longer there today. She also complains of dizziness, blurred vision, right chest sharp pain that radiates to the right arm that is intermittent, shortness of air, cough. Patient states 2 weeks ago she had tooth extractions, 2 months ago she had cataracts, February 25 she had shoulder replacement surgery. Patient is also a smoker. She still has abdominal pain but is asking for food. EKG sinus rhythm and no STEMI. This radiograph, CT angiogram chest abdomen pelvis both negative for acute findings. CT head negative for acute findings. Labs with elevated lipase, K3.2, urine drug screen positive for cocaine, troponin negative x2, lactic acid elevated. She has history of coronary artery disease status post myocardial infarction 20 years ago related to cocaine abuse. The patient has also nicotine dependence, alcohol abuse and cocaine abuse. Cardiac cath in 2017 with minimal LAD disease, no interventions at that time, counseled on cocaine cessation. She is admitted for further care 04/02: No overnight events afebrile. Kept n.p.o. due to severe abdominal pain after advancing diet yesterday labs improved lipase normal, albumin 2.6, K3.3. Afebrile. Pain improved asking for p.o. She still worried about her swelling thinks it is due to CHF rather than cocaine. Counseled on cocaine cessation. COVID-19 negative Vitals/I&O Vitals/I&O: Vital Signs Date Time Temp Pulse Resp B/P (MAP) Pulse Ox O2 Delivery O2 Flow Rate FiO2 04/03/20 08:23 95 Room Air 04/03/20 03:00 96.5 53 20 157/93 (114) 96.5 Physical Exam General: Alert, Oriented X3, Cooperative, mild distress Abdomen: Normal bowel sounds, Soft, No hepatosplenomegaly, No masses, Other (diffusely tender) Extremities: No clubbing, No cyanosis, No edema, Normal pulses, No tenderness/swelling Skin: No rashes, No breakdown, No significant lesion Labs Labs: Laboratory Tests Test 04/03/20 05:00 Sodium Level 141 mmol/L (136-145) Potassium Level 3.3 mmol/L (3.5-5.1) Chloride Level 107 mmol/L (98-107) Carbon Dioxide Level 26 mmol/L (21-32) Anion Gap 8 (6-14) Blood Urea Nitrogen 9 mg/dL (7-20) Creatinine 0.6 mg/dL (0.6-1.0) Estimated GFR (Cockcroft-Gault) 105.0 BUN/Creatinine Ratio 15 (6-20) Glucose Level 144 mg/dL (70-99) Calcium Level 8.2 mg/dL (8.5-10.1) Total Bilirubin 0.3 mg/dL (0.2-1.0) Aspartate Amino Transf (AST/SGOT) 10 U/L (15-37) Alanine Aminotransferase (ALT/SGPT) 22 U/L (14-59) Alkaline Phosphatase 81 U/L (46-116) Total Protein 5.5 g/dL (6.4-8.2) Albumin 2.6 g/dL (3.4-5.0) Albumin/Globulin Ratio 0.9 (1.0-1.7) Lipase 52 U/L (73-393) Assessment and Plan Assessmemt and Plan Problems Medical Problems: (1) Pancreatitis Status: Acute (2) Person under investigation for COVID-19 Status: Acute (3) Urinary tract infection Status: Acute Comment Review of Relevant I have reviewed the following items sabrina (where applicable) has been applied. Medications: Current Medications Medications (Trade) Dose Ordered Sig/Osvaldo Route PRN Reason Start Time Stop Time Status Last Admin Dose Admin Pantoprazole Sodium (PROTONIX VIAL for IV PUSH) 40 mg 1X ONCE IVP 04/02/20 14:30 04/02/20 14:31 DC 04/02/20 14:36 Duloxetine HCl (Cymbalta) 30 mg BID PO 04/02/20 21:00 04/02/20 21:48 Trazodone HCl (Desyrel) 50 mg QHS PO 04/02/20 21:00 04/02/20 21:48 Potassium Chloride/Dextrose/ Sod Cl 1,000 ml @ 75 mls/hr [id number] ONCE IV 04/02/20 15:45 04/03/20 05:04 DC 04/02/20 17:13 Clotrimazole (Mycelex-7) 1 deacon HS VG 04/02/20 22:30 04/09/20 22:29 04/02/20 22:27 Fentanyl Citrate (Fentanyl 2ml Vial) 50 mcg PRN Q2HR PRN IVP PAIN 04/02/20 22:15 04/03/20 08:23 Justifications for Admission Other Justification REYNA HAYES MD Apr 03, 2020 08:37
[2020-04-03 11:20] VITALS: BP 202/100
[2020-04-03] MEDS ORDERED: ENALAPRILAT 2.5 MG/2 ML VIAL. IVP ONE (12:15)
--- NOTE | 2020-04-03 13:30 | PDOC ---
G I PROGRESS NOTE Subjective Sleeping. Did not awaken. Physical Exam NO PE. Review of Relevant I have reviewed the following items sabrina (where applicable) has been applied. Labs Laboratory Tests Test 04/01/20 18:00 04/01/20 19:00 04/02/20 03:30 04/03/20 05:00 White Blood Count 5.5 x10^3/uL (4.0-11.0) Red Blood Count 3.93 x10^6/uL (3.50-5.40) Hemoglobin 12.6 g/dL (12.0-15.5) Hematocrit 37.6 % (36.0-47.0) Mean Corpuscular Volume 96 fL (79-100) Mean Corpuscular Hemoglobin 32 pg (25-35) Mean Corpuscular Hemoglobin Concent 34 g/dL (31-37) Red Cell Distribution Width 13.3 % (11.5-14.5) Platelet Count 200 x10^3/uL (140-400) Neutrophils (%) (Auto) 51 % (31-73) Lymphocytes (%) (Auto) 34 % (24-48) Monocytes (%) (Auto) 9 % (0-9) Eosinophils (%) (Auto) 5 % (0-3) Basophils (%) (Auto) 1 % (0-3) Neutrophils # (Auto) 2.8 x10^3/uL (1.8-7.7) Lymphocytes # (Auto) 1.9 x10^3/uL (1.0-4.8) Monocytes # (Auto) 0.5 x10^3/uL (0.0-1.1) Eosinophils # (Auto) 0.3 x10^3/uL (0.0-0.7) Basophils # (Auto) 0.0 x10^3/uL (0.0-0.2) Prothrombin Time 12.2 SEC (11.7-14.0) Prothromb Time International Ratio 0.9 (0.8-1.1) D-Dimer (Bonnie) 2.06 ug/mlFEU (0.00-0.50) Sodium Level 145 mmol/L (136-145) 141 mmol/L (136-145) Potassium Level 3.2 mmol/L (3.5-5.1) 3.3 mmol/L (3.5-5.1) Chloride Level 107 mmol/L (98-107) 107 mmol/L (98-107) Carbon Dioxide Level 30 mmol/L (21-32) 26 mmol/L (21-32) Anion Gap 8 (6-14) 8 (6-14) Blood Urea Nitrogen 11 mg/dL (7-20) 9 mg/dL (7-20) Creatinine 0.8 mg/dL (0.6-1.0) 0.6 mg/dL (0.6-1.0) Estimated GFR (Cockcroft-Gault) 75.3 105.0 BUN/Creatinine Ratio 14 (6-20) 15 (6-20) Glucose Level 197 mg/dL (70-99) 144 mg/dL (70-99) Lactic Acid Level 3.3 mmol/L (0.4-2.0) 2.2 mmol/L (0.4-2.0) Calcium Level 8.2 mg/dL (8.5-10.1) 8.2 mg/dL (8.5-10.1) Magnesium Level 1.8 mg/dL (1.8-2.4) Total Bilirubin 0.2 mg/dL (0.2-1.0) 0.3 mg/dL (0.2-1.0) Aspartate Amino Transf (AST/SGOT) 14 U/L (15-37) 10 U/L (15-37) Alanine Aminotransferase (ALT/SGPT) 23 U/L (14-59) 22 U/L (14-59) Alkaline Phosphatase 101 U/L (46-116) 81 U/L (46-116) Creatine Kinase 53 U/L (26-192) Troponin I Quantitative < 0.017 ng/mL (0.000-0.055) < 0.017 ng/mL (0.000-0.055) IY-[id number]-Type Natriuretic Peptide 546 pg/mL (0-124) Total Protein 5.6 g/dL (6.4-8.2) 5.5 g/dL (6.4-8.2) Albumin 2.8 g/dL (3.4-5.0) 2.6 g/dL (3.4-5.0) Albumin/Globulin Ratio 1.0 (1.0-1.7) 0.9 (1.0-1.7) Lipase 591 U/L (73-393) 52 U/L (73-393) Urine Collection Type Unknown Urine Color Yellow Urine Clarity Clear Urine pH 6.5 (<5.0-8.0) Urine Specific [place] 1.025 (1.000-1.030) Urine Protein Negative mg/dL (NEG-TRACE) Urine Glucose (UA) 100 mg/dL (NEG) Urine Ketones (Stick) Negative mg/dL (NEG) Urine Blood Negative (NEG) Urine Nitrite Negative (NEG) Urine Bilirubin Negative (NEG) Urine Urobilinogen Dipstick 1.0 mg/dL (0.2 mg/dL) Urine Leukocyte Esterase Moderate (NEG) Urine RBC 0 /HPF (0-2) Urine WBC 20-40 /HPF (0-4) Urine Squamous Epithelial Cells Mod /LPF Urine Bacteria Moderate /HPF (0-FEW) Urine Mucus Mod /LPF Urine Opiates Screen Neg (NEG) Urine Methadone Screen Neg (NEG) Urine Barbiturates Neg (NEG) Urine Phencyclidine Screen Neg (NEG) Urine Amphetamine/Methamphetamine Neg (NEG) Urine Benzodiazepines Screen Neg (NEG) Urine Cocaine Screen Pos (NEG) Urine Cannabinoids Screen Neg (NEG) Urine Ethyl Alcohol Neg (NEG) Laboratory Tests Test 04/03/20 05:00 Sodium Level 141 mmol/L (136-145) Potassium Level 3.3 mmol/L (3.5-5.1) Chloride Level 107 mmol/L (98-107) Carbon Dioxide Level 26 mmol/L (21-32) Anion Gap 8 (6-14) Blood Urea Nitrogen 9 mg/dL (7-20) Creatinine 0.6 mg/dL (0.6-1.0) Estimated GFR (Cockcroft-Gault) 105.0 BUN/Creatinine Ratio 15 (6-20) Glucose Level 144 mg/dL (70-99) Calcium Level 8.2 mg/dL (8.5-10.1) Total Bilirubin 0.3 mg/dL (0.2-1.0) Aspartate Amino Transf (AST/SGOT) 10 U/L (15-37) Alanine Aminotransferase (ALT/SGPT) 22 U/L (14-59) Alkaline Phosphatase 81 U/L (46-116) Total Protein 5.5 g/dL (6.4-8.2) Albumin 2.6 g/dL (3.4-5.0) Albumin/Globulin Ratio 0.9 (1.0-1.7) Lipase 52 U/L (73-393) Microbiology 04/01/20 Urine Culture - Final, Complete 04/01/20 Blood Culture - Preliminary, Resulted NO GROWTH AFTER 1 DAY Lipase now normal. Vitals/I & O Vital Sign - Last 24 Hours 04/02/20 04/02/20 04/02/20 04/02/20 14:36 15:00 17:03 17:12 Temp 98.5 98.5 Pulse 70 Resp 20 B/P (MAP) 150/87 (108) Pulse Ox 96 98 96 96 O2 Delivery Room Air Room Air Room Air Room Air 04/02/20 04/02/20 04/02/20 04/03/20 19:00 20:15 23:35 03:00 Temp 97.5 96.6 96.5 97.5 96.6 96.5 Pulse 59 81 53 Resp 17 16 20 B/P (MAP) 149/67 (94) 153/86 (108) 157/93 (114) Pulse Ox 98 96 95 O2 Delivery Room Air Room Air 04/03/20 04/03/20 04/03/20 04/03/20 07:25 08:00 08:23 09:31 Temp 96.2 96.2 Pulse 74 Resp 16 B/P (MAP) 191/96 (127) Pulse Ox 96 95 95 O2 Delivery Room Air Room Air Room Air Room Air 04/03/20 04/03/20 11:20 12:20 Temp 98.2 98.2 Pulse 76 76 Resp 22 B/P (MAP) 202/100 (134) 202/100 Pulse Ox 92 O2 Delivery Room Air Problem List Problems Medical Problems: (1) Pancreatitis Status: Acute (2) Person under investigation for COVID-19 Status: Acute (3) Urinary tract infection Status: Acute Assessment Doubt pancreatitis. GERD Cocaine abuse. Plan of Care: Continue current Tx, Mgmt Justicifation of Admission Dx: Justifications for Admission: Justification of Admission Dx: Yes Comments: ELLIE LEDEZMA MD Apr 03, 2020 13:30
--- NOTE | 2020-04-03 14:04 | EKG ---
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
[2020-04-03 15:00] VITALS: BP 154/76
[2020-04-03 19:00] VITALS: BP 156/84
[2020-04-03] MEDS: traZODone 50 MG TABLET. PO SCH (19:49)
[2020-04-03] MEDS: CLOTRIMAZOLE 1% VAGINAL CREAM 45GM TUBE. VG SCH (21:00)
[2020-04-03 23:00] VITALS: BP 124/69
[2020-04-04] VITALS (7 sets, daily range): BP systolic 131–196; BP diastolic 70–111
[2020-04-04] MEDS: PANTOPRAZOLE 40 MG TABLET.DR. PO SCH (07:58)
[2020-04-04] MEDS: CETIRIZINE HCL 10 MG TABLET. PO SCH (07:58)
[2020-04-04] MEDS: SPIRONOLACTONE 25 MG TABLET PO SCH (07:58)
[2020-04-04] MEDS: DULoxetine HCL 30 MG CAPSULE.DR PO SCH ×2 (07:58→21:24)
[2020-04-04] MEDS: diphenhydrAMINE 50 MG/ML VIAL IVP PRN ×2 (08:12→17:33)
[2020-04-04] MEDS: fentaNYL PF VIAL 100 MCG/2 ML VIAL IVP PRN (08:12)
[2020-04-04] MEDS ORDERED: OXYC5CAP PO (08:34)
[2020-04-04] MEDS ORDERED: DOCUSATE SODIUM 100 MG CAPSULE. PO PRN (08:45)
[2020-04-04] MEDS ORDERED: POLYETHYLENE GLYCOL 3350 17 GM PACKET. PO ONE (08:45)
--- NOTE | 2020-04-04 09:12 | PDOC ---
PROGRESS NOTES Date of Service: DATE: 04/04/20 TIME: 09:12 Chief Complaint Chief Complaint impression Pancreatitis - with Intractable abdominal pain - likely cocaine induced pancreatitis. GI consulted, NPO Cocaine intoxication - counseled on cessation . 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 She then began having hand and lower leg swelling that is no longer there today. She also complains of dizziness, blurred vision, right chest sharp pain that radiates to the right arm that is intermittent, shortness of air, cough. Patient states 2 weeks ago she had tooth extractions, 2 months ago she had cataracts, February 25 she had shoulder replacement surgery. Patient is also a smoker. She still has abdominal pain but is asking for food. EKG sinus rhythm and no STEMI. Moderate one vessel CAD involving the LAD. This radiograph, CT angiogram chest abdomen pelvis both negative for acute findings. CT head negative for acute findings. Labs with elevated lipase, K3.2, urine drug screen positive for cocaine, troponin negative x2, lactic acid elevated. She has history of coronary artery disease status post myocardial infarction 20 years ago related to cocaine abuse. The patient has also nicotine dependence, alcohol abuse and cocaine abuse. Cardiac cath in 2018 with minimal LAD disease, no interventions at that time, counseled on cocaine cessation. She is admitted for further care 04/02: No overnight events afebrile. Kept n.p.o. due to severe abdominal pain after advancing diet yesterday labs improved lipase normal, albumin 2.6, K3.3. 04-04 codid neg did have chest pain on admit will consult cardiology mod LAD DISEASE CATH 2017 D/W RN Afebrile. Pain improved asking for p.o. She still worried about her swelling thinks it is due to CHF rather than cocaine. Counseled on cocaine cessation. COVID-19 negative Vitals Vitals Vital Signs Date Time Temp Pulse Resp B/P (MAP) Pulse Ox O2 Delivery O2 Flow Rate FiO2 04/04/20 08:14 70 154/81 (105) 04/04/20 03:02 96.8 20 95 Room Air 96.8 Physical Exam General: Alert, Oriented X3, Cooperative, No acute distress Heart: Regular rate, Normal S1 Lungs: Clear Abdomen: Normal bowel sounds, Soft, No hepatosplenomegaly, No masses, Other (diffusely tender) Extremities: No clubbing, No cyanosis, No edema, Normal pulses, No tenderness/swelling Skin: No rashes, No breakdown, No significant lesion Labs LABS APPROVED REPORT Technologist: Atilio Duff RT (R) Nurse: Gretchen Rose RN Procedure(s) performed: Moderate Sedation time: [address] [facility], Coronary angiography HISTORY The patient is a 52 year-old female with a history of : tobacco history() . INDICATION The indication(s) include : non-STEMI , cocaine abuse. PROCEDURE NARRATIVE INFORMED CONSENT: After explaining the risks and benefits of the procedure and alternatives, informed consent was obtained. The patient was brought electively to the cardiac catheterization lab. A timeout was performed confirming the patient's name, date of , procedure, and site of procedure. All necessary personnel were wearing the appropriate protective equipment and radiation monitor devices. (See nursing notes for medications administered). ACCESS: The right wrist was sterilely prepped and draped in the usual fashion. The right wrist was infiltrated with 1 mL of 2% lidocaine for subcutaneous anesthesia. A 6 Albanian Terumo glide sheath was inserted into the right radial artery without difficulty. CORONARY ANGIOGRAPHY: Right and left coronary angiography was performed using a 6Fr TRAP, JR4 and JL 3.5 (Due to short aortic arch, manipulation of the catheters was quite difficult). Left ventricular end diastolic pressure was obtained with a pigtail catheter and pullback was performed after left ventriculography. All catheter exchanges and advancements were performed over a guidewire. CLOSURE: At case completion the right radial sheath was removed and a Terumo radial band was applied with 13 ml of air. COMPLICATIONS: The patient tolerated the procedure well and there were no immediate complications. FINDINGS: HEMODYNAMICS: LVEDP 35 mm Hg No gradient on LV to aortic pullback. AO: 128/78 LEFT VENTRICULOGRAM: Deferred due to known EF of 55% on echo. CORONARY ANGIOGRAPHY: LM is a large caliber vessel with normal angiographic appearance. LAD is a large caliber vessel with a mid 40-50% stenosis. D1 is a moderate caliber vessel with normal angiographic apeparance. LCx is a moderate caliber non-dominant vessel with normal angiographic appearance. OM1 is a moderate caliber vessel with normal angiographic appearance. RCA is a large caliber dominant vessel with a proximal 30% stenosis. RPDA and RPL are moderate caliber vessels with normal angiographic appearance. Conclusion 1. Elevated left ventricular filling pressures. LVEDP 35 mm Hg 2. Moderate one vessel CAD involving the LAD. 3. Cocaine abuse Recommendations Aggressive Medical Therapy Signed by : Ken Briscoe, Electronically Approved : 12/10/2017 11:42:27 DICTATED and SIGNED BY: KEN BRISCOE MD DATE: 12/10/17 1142 CHEST: Pulmonary Arteries: Contrast bolus is adequate. There is no acute pulmonary embolism. Heart/Systemic Vasculature: The heart is normal in size. No pericardial effusion. There are coronary artery calcifications. The thoracic aorta is normal in caliber. An aberrant right subclavian artery is noted. Mediastinum and kush: No lymphadenopathy. Lungs and pleura: The lungs are clear. No pleural effusion. Neck/Axilla/Body Wall: Unremarkable. Bones: No acute osseous abnormality. Mild thoracic degenerative disc disease. ABDOMEN AND PELVIS: Liver: Normal. Gallbladder/Biliary Tree: Gallbladder is mildly contracted. Bile ducts are normal. Pancreas: Normal. Spleen: Normal. Adrenal Glands: Normal. Kidneys/Ureters/Bladder: Kidneys are normal in size and enhance symmetrically. No hydronephrosis. And bladder are normal. Reproductive Organs: Uterus is anteverted. No adnexal mass. Stomach, small bowel, and colon: Stomach is normal. There is no small bowel obstruction. Colon and appendix are normal. Lymph Nodes: No lymphadenopathy. Peritoneum and retroperitoneum: No free fluid or free air. Bones: No acute osseous abnormality. Moderate lumbar degenerative disc disease, greatest at L3-L4 and L4-L5 where there is canal and foraminal narrowing. IMPRESSION: 1. No aortic dissection or aneurysm. No acute pulmonary embolism. 2. No acute abnormality in the chest, abdomen, or pelvis. 3. Moderate lumbar degenerative disc disease, greatest at L3-L4 and L4-L5 where there is canal and foraminal narrowing. Electronically signed by: Alyse Lyn MD (04/01/2020 8:25 PM) [id number] DICTATED and SIGNED BY: ALYSE LYN MD DATE: 04/01/202024 Assessment and Plan Assessmemt and Plan Problems Medical Problems: (1) Pancreatitis Status: Acute (2) Person under investigation for COVID-19 Status: Acute (3) Urinary tract infection Status: Acute Comment Review of Relevant I have reviewed the following items sabrina (where applicable) has been applied. Labs Laboratory Tests Test 04/03/20 05:00 Sodium Level 141 mmol/L (136-145) Potassium Level 3.3 mmol/L (3.5-5.1) Chloride Level 107 mmol/L (98-107) Carbon Dioxide Level 26 mmol/L (21-32) Anion Gap 8 (6-14) Blood Urea Nitrogen 9 mg/dL (7-20) Creatinine 0.6 mg/dL (0.6-1.0) Estimated GFR (Cockcroft-Gault) 105.0 BUN/Creatinine Ratio 15 (6-20) Glucose Level 144 mg/dL (70-99) Calcium Level 8.2 mg/dL (8.5-10.1) Total Bilirubin 0.3 mg/dL (0.2-1.0) Aspartate Amino Transf (AST/SGOT) 10 U/L (15-37) Alanine Aminotransferase (ALT/SGPT) 22 U/L (14-59) Alkaline Phosphatase 81 U/L (46-116) Total Protein 5.5 g/dL (6.4-8.2) Albumin 2.6 g/dL (3.4-5.0) Albumin/Globulin Ratio 0.9 (1.0-1.7) Lipase 52 U/L (73-393) Microbiology 04/01/20 Urine Culture - Final, Complete 04/01/20 Blood Culture - Preliminary, Resulted NO GROWTH AFTER 2 DAYS Medications Current Medications Methylprednisolone Sodium Succinate (SOLU-Medrol 125MG VIAL) 125 mg 1X ONCE IV Last administered on 04/01/20at 18:36; Start 04/01/20 at 17:45; Stop 04/01/20 at 17:46; Status DC Sodium Chloride 1,000 ml @ 1,000 mls/hr 1X ONCE IV Last administered on 04/01/20at 19:14; Start 04/01/20 at 19:00; Stop 04/01/20 at 19:59; Status DC Piperacillin Sod/ Tazobactam Sod 3.375 gm/Sodium Chloride 50 ml @ 100 mls/hr 1X ONCE IV Last administered on 04/01/20at 19:15; Start 04/01/20 at 19:00; Stop 04/01/20 at 19:29; Status DC Iohexol (Omnipaque 350 Mg/ml) 100 ml 1X ONCE IV Last administered on 04/01/20at 19:38; Start 04/01/20 at 19:15; Stop 04/01/20 at 19:16; Status DC Info (CONTRAST GIVEN -- Rx MONITORING) 1 each PRN DAILY PRN MC SEE COMMENTS; Start 04/01/20 at 19:15; Stop 04/03/20 at 19:14; Status DC Ceftriaxone Sodium (Rocephin) 1 gm 1X ONCE IVP ; Start 04/01/20 at 20:00; Stop 04/01/20 at 20:01; Status UNV Sodium Chloride 1,000 ml @ 1,000 mls/hr 1X ONCE IV Last administered on 04/01/20at 21:05; Start 04/01/20 at 20:00; Stop 04/01/20 at 20:59; Status DC Ondansetron HCl (Zofran) 4 mg PRN Q8HRS PRN IV NAUSEA/VOMITING; Start 04/01/20 at 21:00; Stop 04/02/20 at 20:59; Status DC Fentanyl Citrate (Fentanyl 2ml Vial) 50 mcg PRN Q1HR PRN IV PAIN Last administered on 04/02/20at 17:12; Start 04/01/20 at 21:00; Stop 04/02/20 at 20:59; Status DC Sodium Chloride 1,000 ml @ 125 mls/hr Q8H IV Last administered on 04/02/20at 08:32; Start 04/01/20 at 20:51; Stop 04/02/20 at 20:50; Status DC Diphenhydramine HCl (Benadryl) 50 mg 1X ONCE IVP Last administered on 04/02/20at 02:01; Start 04/02/20 at 02:00; Stop 04/02/20 at 02:01; Status DC Diphenhydramine HCl (Benadryl) 25 mg PRN Q6HRS PRN IVP ITCHING Last administered on 04/04/20at 08:12; Start 04/02/20 at 02:00 Influenza Virus Vaccine Quadrival (Fluzone Quad [id number] Syringe) 0.5 ml ONCE ONCE VAX IM Last administered on 04/03/20at 16:29; Start 04/02/20 at 09:00; Stop 04/02/20 at 09:01; Status DC Pantoprazole Sodium (Protonix) 40 mg DAILYAC PO Last administered on 04/04/20at 07:58; Start 04/02/20 at 13:30 Pantoprazole Sodium (PROTONIX VIAL for IV PUSH) 40 mg 1X ONCE IVP Last administered on 04/02/20at 14:36; Start 04/02/20 at 14:30; Stop 04/02/20 at 14:31; Status DC Cetirizine HCl (ZyrTEC) 10 mg DAILY PO Last administered on 04/04/20at 07:58; Start 04/02/20 at 17:00 Duloxetine HCl (Cymbalta) 30 mg BID PO Last administered on 04/04/20at 07:58; Start 04/02/20 at 21:00 Spironolactone (Aldactone) 25 mg DAILY PO Last administered on 04/04/20at 07:58; Start 04/02/20 at 17:00 Trazodone HCl (Desyrel) 50 mg QHS PO Last administered on 04/03/20at 19:49; Start 04/02/20 at 21:00 Albuterol Sulfate (Ventolin Hfa) 1 puff PRN Q4HRS PRN INH SHORTNESS OF BREATH; Start 04/02/20 at 16:00 Non-Formulary Medication (Fluticasone/ Salmeterol (Advair 500-50 Diskus)) 1 puff BID IH ; Start 04/02/20 at 21:00; Status UNV Albuterol Sulfate (Ventolin Neb Soln) 2.5 mg RTQID NEB ; Start 04/02/20 at 16:00; Stop 04/02/20 at 16:00; Status DC Budesonide (Pulmicort) 0.5 mg RTBID NEB ; Start 04/02/20 at 20:00; Stop 04/02/20 at 15:46; Status DC Potassium Chloride/Dextrose/ Sod Cl 1,000 ml @ 75 mls/hr [id number] ONCE IV Last administered on 04/02/20at 17:13; Start 04/02/20 at 15:45; Stop 04/03/20 at 05:04; Status DC Budesonide (Pulmicort) 0.5 mg RTBID NEB ; Start 04/02/20 at 15:45; Stop 04/02/20 at 16:00; Status DC Clotrimazole (Mycelex-7) 1 deacon HS VG Last administered on 04/02/20at 22:27; Start 04/02/20 at 22:30; Stop 04/09/20 at 22:29 Fentanyl Citrate (Fentanyl 2ml Vial) 50 mcg PRN Q2HR PRN IVP PAIN Last administered on 04/04/20at 08:12; Start 04/02/20 at 22:15 Enalaprilat (Vasotec Inj) 2.5 mg 1X ONCE IVP Last administered on 04/03/20at 12:20; Start 04/03/20 at 12:15; Stop 04/03/20 at 12:16; Status DC Polyethylene Glycol (miraLAX PACKET) 17 gm 1X ONCE PO ; Start 04/04/20 at 08:45; Stop 04/04/20 at 08:46; Status DC Docusate Sodium (Colace) 100 mg PRN DAILY PRN PO HARD STOOLS; Start 04/04/20 at 08:45 Active Scripts Active Reported Oxycodone Hcl 5 Mg Capsule 5 Mg PO Q4HRS PRN Naproxen 500 Mg Tablet.dr 1 Tab PO DAILY Percocet 7.5-325 Mg Tablet (Oxycodone/Acetaminophen) 1 Each Tablet 1 Tab PO PRN TID PRN MDD 3 Tablet(s) 30 Days [vitamin d] Xanax (Alprazolam) 1 Mg Tablet 1 Tab PO TID PRN Trazodone Hcl 50 Mg Tablet 1 Tab PO QHS Zyrtec (Cetirizine Hcl) 10 Mg Tablet 1 Tab PO DAILY Lasix (Furosemide) 20 Mg Tablet 1 Tab PO DAILY 30 Days Cymbalta (Duloxetine Hcl) 30 Mg Capsule.dr 30 Mg PO BID Spironolactone 25 Mg Tablet 1 Tab PO DAILY Advair 500-50 Diskus (Fluticasone/Salmeterol) 1 Each Disk.w.dev 1 Puff IH BID Proventil Hfa Inhaler (Albuterol Sulfate) 6.7 Gm Hfa.aer.ad 1 Puff IH PRN Q4HRS PRN Vitals/I & O Vital Sign - Last 24 Hours 04/03/20 04/03/20 04/03/20 04/03/20 09:31 11:20 12:20 15:00 Temp 98.2 98.0 98.2 98.0 Pulse 76 76 69 Resp 22 20 B/P (MAP) 202/100 (134) 202/100 154/76 (102) Pulse Ox 95 92 96 O2 Delivery Room Air Room Air Room Air 04/03/20 04/03/20 04/03/20 04/03/20 19:00 19:49 20:14 20:19 Temp 96.6 96.6 Pulse 83 Resp 20 18 18 B/P (MAP) 156/84 (108) Pulse Ox 97 O2 Delivery Room Air Room Air Room Air 04/03/20 04/04/20 04/04/20 23:00 03:02 08:14 Temp 96.6 96.8 96.6 96.8 Pulse 68 73 70 Resp 20 20 B/P (MAP) 124/69 (87) 172/92 (118) 154/81 (105) Pulse Ox 95 95 O2 Delivery Room Air Room Air Intake and Output 04/03/20 04/03/20 04/04/20 15:00 23:00 07:00 Intake Total 400 ml Output Total 300 ml Balance 400 ml -300 ml Justicifation of Admission Dx: Justifications for Admission: Justification of Admission Dx: Yes NAMAN WATSON MD Apr 04, 2020 09:12
[2020-04-04] MEDS: oxyCODONE IR 5 MG TABLET PO PRN ×3 (11:01→21:40)
--- NOTE | 2020-04-04 11:10 | PDOC ---
Date of Service: DATE: 04/04/20 TIME: 11:04 Subjective: Subjective: Wants to know why her face is swollen, has questions about heart failure. Ate chicken strips last night, doesn't understand why given clears today. No GI complaints. Objective: Objective: Note Miralax ordered this morning. Vital Signs: Vital Signs Date Time Temp Pulse Resp B/P (MAP) Pulse Ox O2 Delivery O2 Flow Rate FiO2 04/04/20 08:14 70 154/81 (105) 04/04/20 07:05 96.6 25 97 Room Air 96.6 Labs: URINE CULTURE Final Final GREATER THAN 100,000 CFU/ML Normal genitourinary sriram, not indicative of infection on 04/03/20 at 0823 BLOOD CULTURE Preliminary NO GROWTH AFTER 2 DAYS PE: GEN: NAD LUNGS: CTAB HEART: RRR ABD: NABS, S/ND/NT NEURO/PSYCH: A & O 3 A/P: Elevated lipase, doubt pancreatitis - resolved Dyspepsia/daily emesis/GERD +cocaine COVID-19 negative 04/01 -- ADAT. Continue PPI. Follow-up for EGD - apparently planned as part of bariatric workup. Defer her questions re: heart failure and facial swelling to Dr. Gamboa. Justicifation of Admission Dx: Justifications for Admission: Justification of Admission Dx: Yes KARLY PACHECO Apr 04, 2020 11:10
[2020-04-04] MEDS ORDERED: ENALAPRILAT 1.25 MG/ML VIAL. IVP PRN (12:00)
--- NOTE | 2020-04-04 12:43 | PDOC2 ---
SHWETA BECERRA TELE RN 04/04/20 1243: CARDIAC CONSULT DATE OF CONSULT Date of Consult DATE: 04/04/20 TIME: 12:25 REASON FOR CONSULT Reason for Consult: Chest pain REFERRING PHYSICIAN Referring Physician: Dr. Gamboa SOURCE Source: Chart review, Patient HISTORY OF PRESENT ILLNESS HISTORY OF PRESENT ILLNESS This is a 54 yo female who presented multiple complaints including all over body swelling including legs, arm, and facial and chest pain. Patient reports having recent cocaine relapse. Began feeling weird after having "hit" of cocaine. Was having stabbing pain in right chest. Radiates through to the back. [place] SOA, nauseated. Pain seemed to improve with nitroglycerin. Also developed anasarca. Had teeth pulled 1 week ago. Thought she possibly had infection/sepsis so she came into the ED for further evaluation and treatment. Reports LE edema is slightly better, but continues to have facial edema that is bothersome. CP has resolved. PAST MEDICAL HISTORY Cardiovascular: CAD, HTN, AR Psych: Anxiety, Addictions, Depression Rheumatologic: Gout PAST SURGICAL HISTORY Past Surgical History: Total knee replacement (right ), Other (left shoulder ) FAMILY HISTORY Family History: Heart Disease SOCIAL HISTORY Smoke: <1 pack per day ALCOHOL: occassional Drugs: Cocaine Lives: Alone CURRENT MEDICATIONS CURRENT MEDICATIONS Current Medications Medications (Trade) Dose Ordered Sig/Osvaldo Route PRN Reason Start Time Stop Time Status Last Admin Dose Admin Polyethylene Glycol (miraLAX PACKET) 17 gm 1X ONCE PO 04/04/20 08:45 04/04/20 08:46 DC 04/04/20 10:13 Oxycodone HCl (Roxicodone) 5 mg PRN Q4HRS PRN PO PAIN 04/04/20 10:45 04/04/20 11:01 ALLERGIES ALLERGIES: Coded Allergies: ciprofloxacin (Verified Allergy, Severe, rash, 12/10/17) morphine (Verified Allergy, Severe, red vein, 12/10/17) latex (Verified Allergy, Intermediate, Rash, 12/10/17) ROS Review of System 14 point ROS conducted with pertinent positives noted above in HPI PHYSICAL EXAM General: Alert, Oriented X3, Cooperative, No acute distress HEENT: Atraumatic, Mucous membr. moist/pink Lungs: Clear to auscultation Heart: Regular rate Abdomen: Soft, Other (obese ) Extremities: Other (trace bilateral LE edema ) Neuro: Normal speech, Sensation intact Psych/Mental Status: Mental status NL, Mood NL MUSCULOSKELETAL: Osteoarthritic changes both hands VITALS/I&O VITALS/I&O: Vital Signs Date Time Temp Pulse Resp B/P (MAP) Pulse Ox O2 Delivery O2 Flow Rate FiO2 04/04/20 11:05 159/74 (102) 04/04/20 08:14 70 04/04/20 07:05 96.6 25 97 Room Air 96.6 I & O 04/03/20 04/03/20 04/04/20 15:00 23:00 07:00 Intake Total 400 ml Output Total 300 ml Balance 400 ml -300 ml ECHOCARDIOGRAM ECHOCARDIOGRAM <Conclusion> The left ventricle is normal size. The left ventricular systolic function is normal and the ejection fraction is within normal range. The Ejection Fraction is 50-55%. There is mild concentric left ventricular hypertrophy. Doppler and Color Flow revealed trace aortic regurgitation. There is no significant aortic valvular stenosis. Doppler and Color Flow revealed no mitral valve regurgitation noted. Doppler and Color Flow revealed trace tricuspid valve regurgitation with an estimated PAP of 24 mmHg. DATE: 01/18/20 1036 STRESS TEST STRESS TEST Conclusion 1. No EKG evidence of stress-induced ischemia. 2. Nuclear imaging shows no reversible ischemia or infarct. 3. Normal left ventricular systolic function with no regional wall motion abnormalities and an ejection fraction of greater than 70%. 4. Low risk Lexiscan nuclear stress test. DATE: 01/18/20 1125 HEART CATH HEART CATH CORONARY ANGIOGRAPHY: LM is a large caliber vessel with normal angiographic appearance. LAD is a large caliber vessel with a mid 40-50% stenosis. D1 is a moderate caliber vessel with normal angiographic apeparance. LCx is a moderate caliber non-dominant vessel with normal angiographic appearance. OM1 is a moderate caliber vessel with normal angiographic appearance. RCA is a large caliber dominant vessel with a proximal 30% stenosis. RPDA and RPL are moderate caliber vessels with normal angiographic appearance. Conclusion 1. Elevated left ventricular filling pressures. LVEDP 35 mm Hg 2. Moderate one vessel CAD involving the LAD. 3. Cocaine abuse Recommendations Aggressive Medical Therapy DATE: 12/10/17 1142 ASSESSMENT/PLAN ASSESSMENT/PLAN 1. Chest pain, atypical. AMI ruled out. Echo 01/06 with preserved LV systolic function 2. CAD; one-vessel disease noted cath 2018 as above. MPI 01/06 without evidence of ischemia or infarct. 3. Mild acute diastolic CHF 4. Accelerated hypertension; labile 5. Anasarca; improved. 6. Cocaine abuse, relapse 7. Recent tooth extraction, left shoulder replacement 8. Hypokalemia Recommendations Add ASA Lipids Add lisinopril for BP control Mild diuresis Replace K Counseled on cocaine cessation. Supportive care KEN MARISCAL MD 04/04/20 1750: SHWETA BECERRA APRN Apr 04, 2020 12:43 KEN MARISCAL MD Apr 04, 2020 17:50
--- NOTE | 2020-04-04 15:51 | NUR ---
SW following for discharge planning. Spoke with RN and reviewed chart. SW consulted per pt being a risk for failure on discharge. Pt has a hx of cocaine abuse. Pt seen and cleared by PAT. Pt from home. Pt on room air, IV pain medication, cardiac diet, COVID negative. Discharge plan is home, self-care. No anticipated SW needs at discharge. SW available as need.
[2020-04-04] MEDS ORDERED: POTASSIUM CHLORIDE 20 MEQ TABLET.ER. PO ONE (16:00)
[2020-04-04] MEDS ORDERED: FUROSEMIDE 40 MG/4 ML VIAL. IVP ONE (16:00)
[2020-04-04 17:45] LABS: CHOLESTEROL/HDL RATIO 3.5
[2020-04-04] MEDS: BUDESONIDE 0.5 MG/2 ML NEBU. NEB SCH (20:00)
[2020-04-04] MEDS: CLOTRIMAZOLE 1% VAGINAL CREAM 45GM TUBE. VG SCH (21:24)
[2020-04-04] MEDS: traZODone 50 MG TABLET. PO SCH (21:24)
[2020-04-04] MEDS: ALBUTEROL SULFATE 8GM INHALER. INH SCH (21:57)
[2020-04-05] MEDS: diphenhydrAMINE 50 MG/ML VIAL IVP PRN (00:40)
[2020-04-05 02:55] VITALS: BP 125/65
[2020-04-05 07:14] VITALS: BP 172/92
[2020-04-05] MEDS: BUDESONIDE 0.5 MG/2 ML NEBU. NEB SCH (07:58)
[2020-04-05] MEDS: ALBUTEROL SULFATE 8GM INHALER. INH SCH (08:00)
[2020-04-05] MEDS ORDERED: ASPIRIN ENTERIC COATED 81 MG TABLET.DR. PO SCH (08:00)
[2020-04-05] MEDS ORDERED: ALBUTEROL SULFATE 2.5 MG/3 ML NEBU. NEB ONE (08:15)
[2020-04-05] MEDS ORDERED: LISINOPRIL 10 MG TABLET PO SCH (09:00)
--- NOTE | 2020-04-05 09:36 | PDOC ---
PROGRESS NOTES Date of Service: DATE: 04/05/20 TIME: 09:36 Chief Complaint Chief Complaint DISCHARGE DX Pancreatitis - with Intractable abdominal pain - likely cocaine induced pancreatitis. GI consulted, NPO Cocaine intoxication - counseled on cessation . 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 Mild acute diastolic CHF plan FEN- Full liquid diet PPX - lovenox FULL CODE Dispo - inpatient card consult Add ASA Lipids Add lisinopril for BP control Mild diuresis Replace K Counseled on cocaine cessation. Supportive care D/C PLANNING 35 MIN History of Present Illness History of Present Illness Ms Burgos is a 54 yo F w/ PMHx polysubstance abuse, Hypertension, hyperlipidemia, bronchial asthma/COPD who presents with cocaine relapse and usage 2 days prior to. She then began having hand and lower leg swelling that is no longer there today. She also complains of dizziness, blurred vision, right chest sharp pain that radiates to the right arm that is intermittent, shortness of air, cough. Patient states 2 weeks ago she had tooth extractions, 2 months ago she had cataracts, February 25 she had shoulder replacement surgery. Patient is also a smoker. She still has abdominal pain but is asking for food. EKG sinus rhythm and no STEMI. Moderate one vessel CAD involving the LAD. This radiograph, CT angiogram chest abdomen pelvis both negative for acute findings. CT head negative for acute findings. Labs with elevated lipase, K3.2, urine drug screen positive for cocaine, troponin negative x2, lactic acid elevated. She has history of coronary artery disease status post myocardial infarction 20 years ago related to cocaine abuse. The patient has also nicotine dependence, alcohol abuse and cocaine abuse. Cardiac cath in 2018 with minimal LAD disease, no interventions at that time, counseled on cocaine cessation. She is admitted for further care 04/02: No overnight events afebrile. Kept n.p.o. due to severe abdominal pain after advancing diet yesterday labs improved lipase normal, albumin 2.6, K3.3. - codmai neg did have chest pain on admit will consult cardiology mod LAD DISEASE CATH 2018 D/W RN Afebrile. Pain improved asking for p.o. She still worried about her swelling thinks it is due to CHF rather than cocaine. Counseled on cocaine cessation. COVID-19 negative Vitals Vitals Vital Signs Date Time Temp Pulse Resp B/P (MAP) Pulse Ox O2 Delivery O2 Flow Rate FiO2 04/05/20 08:08 98 Room Air 04/05/20 07:14 97.1 62 16 172/92 (118) 97.1 Physical Exam General: Alert, Oriented X3, Cooperative, No acute distress Heart: Regular rate, Normal S1 Lungs: Clear Abdomen: Soft, Other (obese ) Extremities: No clubbing, No cyanosis, Other (trace bilateral LE edema ) Skin: No rashes, No breakdown, No significant lesion Assessment and Plan Assessmemt and Plan Problems Medical Problems: (1) Pancreatitis Status: Acute (2) Person under investigation for COVID-19 Status: Acute (3) Urinary tract infection Status: Acute Comment Review of Relevant I have reviewed the following items sabrina (where applicable) has been applied. Labs Microbiology 04/01/20 Urine Culture - Final, Complete 04/01/20 Blood Culture - Preliminary, Resulted NO GROWTH AFTER 3 DAYS Medications Current Medications Methylprednisolone Sodium Succinate (SOLU-Medrol 125MG VIAL) 125 mg 1X ONCE IV Last administered on 04/01/20at 18:36; Start 04/01/20 at 17:45; Stop 04/01/20 at 17:46; Status DC Sodium Chloride 1,000 ml @ 1,000 mls/hr 1X ONCE IV Last administered on 04/01/20at 19:14; Start 04/01/20 at 19:00; Stop 04/01/20 at 19:59; Status DC Piperacillin Sod/ Tazobactam Sod 3.375 gm/Sodium Chloride 50 ml @ 100 mls/hr 1X ONCE IV Last administered on 04/01/20at 19:15; Start 04/01/20 at 19:00; Stop 04/01/20 at 19:29; Status DC Iohexol (Omnipaque 350 Mg/ml) 100 ml 1X ONCE IV Last administered on 04/01/20at 19:38; Start 04/01/20 at 19:15; Stop 04/01/20 at 19:16; Status DC Info (CONTRAST GIVEN -- Rx MONITORING) 1 each PRN DAILY PRN MC SEE COMMENTS; Start 04/01/20 at 19:15; Stop 04/03/20 at 19:14; Status DC Ceftriaxone Sodium (Rocephin) 1 gm 1X ONCE IVP ; Start 04/01/20 at 20:00; Stop 04/01/20 at 20:01; Status UNV Sodium Chloride 1,000 ml @ 1,000 mls/hr 1X ONCE IV Last administered on at 21:05; Start 04/01/20 at 20:00; Stop 04/01/20 at 20:59; Status DC Ondansetron HCl (Zofran) 4 mg PRN Q8HRS PRN IV NAUSEA/VOMITING; Start 04/01/20 at 21:00; Stop 04/02/20 at 20:59; Status DC Fentanyl Citrate (Fentanyl 2ml Vial) 50 mcg PRN Q1HR PRN IV PAIN Last administered on 04/02/20at 17:12; Start 04/01/20 at 21:00; Stop 04/02/20 at 20:59; Status DC Sodium Chloride 1,000 ml @ 125 mls/hr Q8H IV Last administered on 04/02/20at 08:32; Start 04/01/20 at 20:51; Stop 04/02/20 at 20:50; Status DC Diphenhydramine HCl (Benadryl) 50 mg 1X ONCE IVP Last administered on 04/02/20at 02:01; Start 04/02/20 at 02:00; Stop 04/02/20 at 02:01; Status DC Diphenhydramine HCl (Benadryl) 25 mg PRN Q6HRS PRN IVP ITCHING Last administered on 04/05/20at 00:40; Start 04/02/20 at 02:00 Influenza Virus Vaccine Quadrival (Fluzone Quad Syringe) 0.5 ml ONCE ONCE VAX IM Last administered on 04/03/20at 16:29; Start 04/02/20 at 09:00; Stop 04/02/20 at 09:01; Status DC Pantoprazole Sodium (Protonix) 40 mg DAILYAC PO Last administered on 04/04/20at 07:58; Start 04/02/20 at 13:30 Pantoprazole Sodium (PROTONIX VIAL for IV PUSH) 40 mg 1X ONCE IVP Last administered on 04/02/20at 14:36; Start 04/02/20 at 14:30; Stop 04/02/20 at 14:31; Status DC Cetirizine HCl (ZyrTEC) 10 mg DAILY PO Last administered on 04/04/20at 07:58; Start 04/02/20 at 17:00 Duloxetine HCl (Cymbalta) 30 mg BID PO Last administered on 04/04/20at 21:24; Start 04/02/20 at 21:00 Spironolactone (Aldactone) 25 mg DAILY PO Last administered on 04/04/20at 07:58; Start 04/02/20 at 17:00 Trazodone HCl (Desyrel) 50 mg QHS PO Last administered on 04/04/20at 21:24; Start 04/02/20 at 21:00 Albuterol Sulfate (Ventolin Hfa) 1 puff PRN Q4HRS PRN INH SHORTNESS OF BREATH; Start 04/02/20 at 16:00 Non-Formulary Medication (Fluticasone/ Salmeterol (Advair 500-50 Diskus)) 1 puff BID IH ; Start 04/02/20 at 21:00; Status UNV Albuterol Sulfate (Ventolin Neb Soln) 2.5 mg RTQID NEB ; Start 04/02/20 at 16:00; Stop 04/02/20 at 16:00; Status DC Budesonide (Pulmicort) 0.5 mg RTBID NEB ; Start 04/02/20 at 20:00; Stop 04/02/20 at 15:46; Status DC Potassium Chloride/Dextrose/ Sod Cl 1,000 ml @ 75 mls/hr [id number] ONCE IV Last administered on 04/02/20at 17:13; Start 04/02/20 at 15:45; Stop 04/03/20 at 05:04; Status DC Budesonide (Pulmicort) 0.5 mg RTBID NEB ; Start 04/02/20 at 15:45; Stop 04/02/20 at 16:00; Status DC Clotrimazole (Mycelex-7) 1 deacon HS VG Last administered on 04/04/20at 21:24; Start 04/02/20 at 22:30; Stop 04/09/20 at 22:29 Fentanyl Citrate (Fentanyl 2ml Vial) 50 mcg PRN Q2HR PRN IVP PAIN Last administered on 04/04/20at 08:12; Start 04/02/20 at 22:15 Enalaprilat (Vasotec Inj) 2.5 mg 1X ONCE IVP Last administered on 04/03/20at 12:20; Start 04/03/20 at 12:15; Stop 04/03/20 at 12:16; Status DC Polyethylene Glycol (miraLAX PACKET) 17 gm 1X ONCE PO Last administered on 04/04/20at 10:13; Start 04/04/20 at 08:45; Stop 04/04/20 at 08:46; Status DC Docusate Sodium (Colace) 100 mg PRN DAILY PRN PO HARD STOOLS Last administered on 04/04/20at 17:51; Start 04/04/20 at 08:45 Oxycodone HCl (Roxicodone) 5 mg PRN Q4HRS PRN PO PAIN Last administered on 04/04/20at 21:40; Start 04/04/20 at 10:45 Enalaprilat (Vasotec Inj) 1.25 mg PRN Q6HRS PRN IVP HYPERTENSION; Start 04/04/20 at 12:00 Furosemide (Lasix) 40 mg 1X ONCE IVP Last administered on 04/04/20at 17:33; Start 04/04/20 at 16:00; Stop 04/04/20 at 16:05; Status DC Potassium Chloride (Klor-Con) 40 meq 1X ONCE PO Last administered on 04/04/20at 17:34; Start 04/04/20 at 16:00; Stop 04/04/20 at 16:05; Status DC Lisinopril (Prinivil) 10 mg DAILY PO ; Start 04/05/20 at 09:00 Aspirin (Ecotrin) 81 mg DAILYWBKFT PO ; Start 04/05/20 at 08:00 Albuterol Sulfate (Ventolin Hfa) 1 puff RTQID INH Last administered on 04/04/20at 21:57; Start 04/04/20 at 20:00 Budesonide (Pulmicort) 0.5 mg RTBID NEB Last administered on 04/05/20at 07:58; Start 04/04/20 at 20:00 Albuterol Sulfate (Ventolin Neb Soln) 2.5 mg 1X ONCE NEB Last administered on 04/05/20at 08:12; Start 04/05/20 at 08:15; Stop 04/05/20 at 08:16; Status DC Active Scripts Active Reported Oxycodone Hcl 5 Mg Capsule 5 Mg PO Q4HRS PRN Naproxen 500 Mg Tablet.dr 1 Tab PO DAILY Percocet 7.5-325 Mg Tablet (Oxycodone/Acetaminophen) 1 Each Tablet 1 Tab PO PRN TID PRN MDD 3 Tablet(s) 30 Days [vitamin d] Xanax (Alprazolam) 1 Mg Tablet 1 Tab PO TID PRN Trazodone Hcl 50 Mg Tablet 1 Tab PO QHS Zyrtec (Cetirizine Hcl) 10 Mg Tablet 1 Tab PO DAILY Lasix (Furosemide) 20 Mg Tablet 1 Tab PO DAILY 30 Days Cymbalta (Duloxetine Hcl) 30 Mg Capsule.dr 30 Mg PO BID Spironolactone 25 Mg Tablet 1 Tab PO DAILY Advair 500-50 Diskus (Fluticasone/Salmeterol) 1 Each Disk.w.dev 1 Puff IH BID Proventil Hfa Inhaler (Albuterol Sulfate) 6.7 Gm Hfa.aer.ad 1 Puff IH PRN Q4HRS PRN Vitals/I & O Vital Sign - Last 24 Hours 04/04/20 04/04/20 04/04/20 04/04/20 11:05 15:05 15:39 19:59 Temp 96.8 96.9 96.8 96.9 Pulse 74 74 Resp 25 16 B/P (MAP) 159/74 (102) 160/82 (108) 143/73 (96) Pulse Ox 98 99 O2 Delivery Room Air Room Air Room Air 04/04/20 04/04/20 04/04/20 04/04/20 20:00 21:40 22:40 22:43 Temp 97.4 97.4 Pulse 67 Resp 19 19 16 B/P (MAP) 131/70 (90) Pulse Ox 99 98 O2 Delivery Room Air Room Air Room Air Room Air 04/05/20 04/05/20 04/05/20 02:55 07:14 08:08 Temp 96.4 97.1 96.4 97.1 Pulse 63 62 Resp 16 16 B/P (MAP) 125/65 (85) 172/92 (118) Pulse Ox 95 98 98 O2 Delivery Room Air Room Air Room Air Intake and Output 04/04/20 04/04/20 04/05/20 15:00 23:00 07:00 Intake Total 0 ml 420 ml Balance 0 ml 420 ml Justicifation of Admission Dx: Justifications for Admission: Justification of Admission Dx: Yes NAMAN WATSON MD Apr 05, 2020 09:36
--- NOTE | 2020-04-05 10:31 | PDOC ---
SHWETA BECERRA APRN 04/05/20 1031: CARDIO Progress Notes Date and Time Date of Service 04/05/20 Time of Evaluation 1030 Subjective Subjective: No Chest Pain, No shortness of breath, No Palpitations, Other (Swelling improved. C/o constipation ) Vitals Vitals Vital Signs Date Time Temp Pulse Resp B/P (MAP) Pulse Ox O2 Delivery O2 Flow Rate FiO2 04/05/20 08:08 98 Room Air 04/05/20 07:14 97.1 62 16 172/92 (118) 97.1 Weight Weight [ ] Input and Output Intake and Output Intake and Output 04/05/20 07:00 Intake Total 420 ml Balance 420 ml Intake Oral 420 ml # Voids 9 Microbiology Micro Microbiology 04/01/20 Urine Culture - Final, Complete 04/01/20 Blood Culture - Preliminary, Resulted NO GROWTH AFTER 3 DAYS Physical Exam HEENT: Neck Supple W Full Motion Chest: Symmetric LUNGS: Clear to Auscultation Heart: S1S2, RRR Abdomen: Soft N/T Extremities: No Edema Neurology: alert, oriented, follow commands Assessment Assessment 1. Chest pain, atypical. AMI ruled out. Echo 01/06 with preserved LV systolic function 2. CAD; one-vessel disease noted cath 2017. MPI 01/06 without evidence of ischemia or infarct. 3. Mild acute diastolic CHF; appears compensated 4. Accelerated hypertension; now controlled 5. Anasarca; improved. 6. Cocaine abuse, relapse 7. Recent tooth extraction, left shoulder replacement 8. Constipation 9. Elevated lipase Recommendations ASA Lisinopril for BP control Continue Aldactone Counseled on cocaine cessation. Supportive care Okay to discharge from a CV standpoint Follow up in our office with Dr. Briscoe as scheduled. Justicifation of Admission Dx: Justifications for Admission: Justification of Admission Dx: Yes KEN BRISCOE MD 04/05/20 1538: CARDIO Progress Notes Plan Plan The patient was seen and interviewed as well as examined at the bedside. The chart was reviewed. The case was discussed. Agree with the plan of care. SHWETA BECERRA APRN Apr 05, 2020 10:31 KEN BRISCOE MD Apr 05, 2020 15:38
[2020-04-05] MEDS: PANTOPRAZOLE 40 MG TABLET.DR. PO SCH (11:00)
[2020-04-05] MEDS: DULoxetine HCL 30 MG CAPSULE.DR PO SCH (11:00)
[2020-04-05] MEDS: SPIRONOLACTONE 25 MG TABLET PO SCH (11:01)
[2020-04-05] MEDS: CETIRIZINE HCL 10 MG TABLET. PO SCH (11:01)
[2020-04-05 11:17] VITALS: BP 132/68
--- NOTE | 2020-04-05 11:37 | PDOC3 ---
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 GI consulted, NPO Cocaine intoxication - counseled on cessation . PAT team consult Hypokalemia - will replace, check mag Hypertension - cont meds Hyperlipidemia - cont statin Bronchial asthma/COPD - prn albuterol inhaler Severe protein calorie malnutrition - certified drug counselor to see Hypokalemia Lactic acidosis CAD; one-vessel disease noted cath 2018 as above.// MPI 01/06 without evidence of ischemia or infarct. Mild acute diastolic CHF plan FEN- Full liquid diet PPX - lovenox FULL CODE Dispo - inpatient card consult Add ASA Lipids Add lisinopril for BP control Mild diuresis Replace K Counseled on cocaine cessation. Supportive care D/C PLANNING 35 MIN History of Present Illness History of Present Illness Ms Burgos is a 54 yo F w/ PMHx polysubstance abuse, Hypertension, hyperlipidemia, bronchial asthma/COPD who presents with cocaine relapse and usage 2 days prior to. She then began having hand and lower leg swelling that is no longer there today. She also complains of dizziness, blurred vision, right chest sharp pain that radiates to the right arm that is intermittent, shortness of air, cough. Patient states 2 weeks ago she had tooth extractions, 2 months ago she had cataracts, February 25 she had shoulder replacement surgery. Patient is also a smoker. She still has abdominal pain but is asking for food. EKG sinus rhythm and no STEMI. Moderate one vessel CAD involving the LAD. This radiograph, CT angiogram chest abdomen pelvis both negative for acute findings. CT head negative for acute findings. Labs with elevated lipase, K3.2, urine drug screen positive for cocaine, troponin negative x2, lactic acid elevated. She has history of coronary artery disease status post myocardial infarction 20 years ago related to cocaine abuse. The patient has also nicotine dependence, alcohol abuse and cocaine abuse. Cardiac cath in 2018 with minimal LAD disease, no interventions at that time, counseled on cocaine cessation. She is admitted for further care 04/02: No overnight events afebrile. Kept n.p.o. due to severe abdominal pain after advancing diet yesterday labs improved lipase normal, albumin 2.6, K3.3. 04-04 kate colin did have chest pain on admit will consult cardiology mod LAD DISEASE CATH 2018 D/W RN Afebrile. Pain improved asking for p.o. She still worried about her swelling thinks it is due to CHF rather than cocaine. Counseled on cocaine cessation. COVID-19 negative Vitals Vitals Vital Signs Date Time Temp Pulse Resp B/P (MAP) Pulse Ox O2 Delivery O2 Flow Rate FiO2 04/05/20 08:08 98 Room Air 04/05/20 07:14 97.1 62 16 172/92 (118) 97.1 Physical Exam General: Alert, Oriented X3, Cooperative, No acute distress Heart: Regular rate, Normal S1 Lungs: Clear Abdomen: Soft, Other (obese ) Extremities: No clubbing, No cyanosis, Other (trace bilateral LE edema ) Skin: No rashes, No breakdown, No significant lesion FINAL DIAGNOSIS Problems Medical Problems: (1) Pancreatitis Status: Acute (2) Person under investigation for COVID-19 Status: Acute (3) Urinary tract infection Status: Acute Brief Hospital Course Ms. Burgos is a 54 old [sex] who presented with [ ACUTE PANCREATITIS, COCAINE ABUSE ] CONDITION AT DISCHARGE: Improved Discharge Medications Current Medications Methylprednisolone Sodium Succinate (SOLU-Medrol 125MG VIAL) 125 mg 1X ONCE IV Last administered on 04/01/20at 18:36; Start 04/01/20 at 17:45; Stop 04/01/20 at 17:46; Status DC Sodium Chloride 1,000 ml @ 1,000 mls/hr 1X ONCE IV Last administered on 04/01/20at 19:14; Start 04/01/20 at 19:00; Stop 04/01/20 at 19:59; Status DC Piperacillin Sod/ Tazobactam Sod 3.375 gm/Sodium Chloride 50 ml @ 100 mls/hr 1X ONCE IV Last administered on 04/01/20at 19:15; Start 04/01/20 at 19:00; Stop 04/01/20 at 19:29; Status DC Iohexol (Omnipaque 350 Mg/ml) 100 ml 1X ONCE IV Last administered on 04/01/20at 19:38; Start 04/01/20 at 19:15; Stop 04/01/20 at 19:16; Status DC Info (CONTRAST GIVEN -- Rx MONITORING) 1 each PRN DAILY PRN MC SEE COMMENTS; Start 04/01/20 at 19:15; Stop 04/03/20 at 19:14; Status DC Ceftriaxone Sodium (Rocephin) 1 gm 1X ONCE IVP ; Start 04/01/20 at 20:00; Stop 04/01/20 at 20:01; Status UNV Sodium Chloride 1,000 ml @ 1,000 mls/hr 1X ONCE IV Last administered on 04/01/20at 21:05; Start 04/01/20 at 20:00; Stop 04/01/20 at 20:59; Status DC Ondansetron HCl (Zofran) 4 mg PRN Q8HRS PRN IV NAUSEA/VOMITING; Start 04/01/20 at 21:00; Stop 04/02/20 at 20:59; Status DC Fentanyl Citrate (Fentanyl 2ml Vial) 50 mcg PRN Q1HR PRN IV PAIN Last administered on 04/02/20at 17:12; Start 04/01/20 at 21:00; Stop 04/02/20 at 20:59; Status DC Sodium Chloride 1,000 ml @ 125 mls/hr Q8H IV Last administered on 04/02/20at 08:32; Start 04/01/20 at 20:51; Stop 04/02/20 at 20:50; Status DC Diphenhydramine HCl (Benadryl) 50 mg 1X ONCE IVP Last administered on 04/02/20at 02:01; Start 04/02/20 at 02:00; Stop 04/02/20 at 02:01; Status DC Diphenhydramine HCl (Benadryl) 25 mg PRN Q6HRS PRN IVP ITCHING Last administered on 04/05/20at 00:40; Start 04/02/20 at 02:00 Influenza Virus Vaccine Quadrival (Fluzone Quad Syringe) 0.5 ml ONCE ONCE VAX IM Last administered on 04/03/20at 16:29; Start 04/02/20 at 09:00; Stop 04/02/20 at 09:01; Status DC Pantoprazole Sodium (Protonix) 40 mg DAILYAC PO Last administered on 04/05/20at 11:00; Start 04/02/20 at 13:30 Pantoprazole Sodium (PROTONIX VIAL for IV PUSH) 40 mg 1X ONCE IVP Last admin istered on 04/02/20at 14:36; Start 04/02/20 at 14:30; Stop 04/02/20 at 14:31; Status DC Cetirizine HCl (ZyrTEC) 10 mg DAILY PO Last administered on 04/05/20at 11:01; Start 04/02/20 at 17:00 Duloxetine HCl (Cymbalta) 30 mg BID PO Last administered on 04/05/20at 11:00; Start 04/02/20 at 21:00 Spironolactone (Aldactone) 25 mg DAILY PO Last administered on 04/05/20at 11:01; Start 04/02/20 at 17:00 Trazodone HCl (Desyrel) 50 mg QHS PO Last administered on 04/04/20at 21:24; Start 04/02/20 at 21:00 Albuterol Sulfate (Ventolin Hfa) 1 puff PRN Q4HRS PRN INH SHORTNESS OF BREATH; Start 04/02/20 at 16:00 Non-Formulary Medication (Fluticasone/ Salmeterol (Advair 500-50 Diskus)) 1 puff BID IH ; Start 04/02/20 at 21:00; Status UNV Albuterol Sulfate (Ventolin Neb Soln) 2.5 mg RTQID NEB ; Start 04/02/20 at 16:00; Stop 04/02/20 at 16:00; Status DC Budesonide (Pulmicort) 0.5 mg RTBID NEB ; Start 04/02/20 at 20:00; Stop 04/02/20 at 15:46; Status DC Potassium Chloride/Dextrose/ Sod Cl 1,000 ml @ 75 mls/hr [id number] ONCE IV Last administered on 04/02/20at 17:13; Start 04/02/20 at 15:45; Stop 04/03/20 at 05:04; Status DC Budesonide (Pulmicort) 0.5 mg RTBID NEB ; Start 04/02/20 at 15:45; Stop 04/02/20 at 16:00; Status DC Clotrimazole (Mycelex-7) 1 deacon HS VG Last administered on 04/04/20at 21:24; Start 04/02/20 at 22:30; Stop 04/09/20 at 22:29 Fentanyl Citrate (Fentanyl 2ml Vial) 50 mcg PRN Q2HR PRN IVP PAIN Last administered on 04/04/20at 08:12; Start 04/02/20 at 22:15 Enalaprilat (Vasotec Inj) 2.5 mg 1X ONCE IVP Last administered on 04/03/20at 12:20; Start 04/03/20 at 12:15; Stop 04/03/20 at 12:16; Status DC Polyethylene Glycol (miraLAX PACKET) 17 gm 1X ONCE PO Last administered on 04/04/20at 10:13; Start 04/04/20 at 08:45; Stop 04/04/20 at 08:46; Status DC Docusate Sodium (Colace) 100 mg PRN DAILY PRN PO HARD STOOLS Last administered on 04/04/20at 17:51; Start 04/04/20 at 08:45 Oxycodone HCl (Roxicodone) 5 mg PRN Q4HRS PRN PO PAIN Last administered on 04/04/20at 21:40; Start 04/04/20 at 10:45 Enalaprilat (Vasotec Inj) 1.25 mg PRN Q6HRS PRN IVP HYPERTENSION; Start 04/04/20 at 12:00 Furosemide (Lasix) 40 mg 1X ONCE IVP Last administered on 04/04/20at 17:33; Start 04/04/20 at 16:00; Stop 04/04/20 at 16:05; Status DC Potassium Chloride (Klor-Con) 40 meq 1X ONCE PO Last administered on 04/04/20at 17:34; Start 04/04/20 at 16:00; Stop 04/04/20 at 16:05; Status DC Lisinopril (Prinivil) 10 mg DAILY PO Last administered on 04/05/20at 11:00; Start 04/05/20 at 09:00 Aspirin (Ecotrin) 81 mg DAILYWBKFT PO Last administered on 04/05/20at 11:00; Start 11/17/20 at 08:00 Albuterol Sulfate (Ventolin Hfa) 1 puff RTQID INH Last administered on 04/04/20at 21:57; Start 04/04/20 at 20:00 Budesonide (Pulmicort) 0.5 mg RTBID NEB Last administered on 04/05/20at 07:58; Start 04/04/20 at 20:00; Stop 04/05/20 at 10:26; Status DC Albuterol Sulfate (Ventolin Neb Soln) 2.5 mg 1X ONCE NEB Last administered on 04/05/20at 08:12; Start 04/05/20 at 08:15; Stop 04/05/20 at 08:16; Status DC Active Scripts Active Reported Oxycodone Hcl 5 Mg Capsule 5 Mg PO Q4HRS PRN Naproxen 500 Mg Tablet.dr 1 Tab PO DAILY Percocet 7.5-325 Mg Tablet (Oxycodone/Acetaminophen) 1 Each Tablet 1 Tab PO PRN TID PRN MDD 3 Tablet(s) 30 Days [vitamin d] Xanax (Alprazolam) 1 Mg Tablet 1 Tab PO TID PRN Trazodone Hcl 50 Mg Tablet 1 Tab PO QHS Zyrtec (Cetirizine Hcl) 10 Mg Tablet 1 Tab PO DAILY Lasix (Furosemide) 20 Mg Tablet 1 Tab PO DAILY 30 Days Cymbalta (Duloxetine Hcl) 30 Mg Capsule.dr 30 Mg PO BID Spironolactone 25 Mg Tablet 1 Tab PO DAILY Advair 500-50 Diskus (Fluticasone/Salmeterol) 1 Each Disk.w.dev 1 Puff IH BID Proventil Hfa Inhaler (Albuterol Sulfate) 6.7 Gm Hfa.aer.ad 1 Puff IH PRN Q4HRS PRN Vital Signs Vital Signs Date Time Temp Pulse Resp B/P (MAP) Pulse Ox O2 Delivery O2 Flow Rate FiO2 04/05/20 11:17 97.1 70 16 132/68 (89) 97 Room Air 97.1 Allergies Allergies Coded Allergies Type Severity Reaction Last Updated Verified ciprofloxacin Allergy Severe rash 12/10/17 Yes morphine Allergy Severe red vein 12/10/17 Yes latex Allergy Intermediate Rash 12/10/17 Yes Disposition/Orders: D/C to Home Justicifation of Admission Dx: Justifications for Admission: Justification of Admission Dx: Yes FULBRIGHT,NAMAN W MD Apr 05, 2020 11:37
[2020-04-05] MEDS ORDERED: CLOT45CR4 VG (11:40)
[2020-04-05] MEDS ORDERED: LISI10TA2 PO (11:40)
[2020-04-05] MEDS ORDERED: ASPI-886 PO (11:40)
[2020-04-05] MEDS ORDERED: DOCU-153 PO (11:40)
[2020-04-05] MEDS ORDERED: PANT40TA77 PO (11:40)
--- NOTE | 2020-04-05 11:41 | DISCH ---
DISCHARGE INSTRUCTIONS Condition on Discharge Condition on Discharge: Stable Activity After Discharge Activity Instructions for Disc: Activity as tolerated, Bedrest today Lifting Instructions after Dis: No heavy lifting, No pulling or pushing, Do not lift >10 pounds Exercise Instruction after Dis: Progress as tolerated Driving Instructions after Dis: Do not drive, No driving for 2 weeks Weight Bearing Status after Di: As tolerated Diet after Discharge Diet after Discharge: Cardiac Checks after Discharge Checks after discharge: Check blood press - daily, Check blood sugar, ac/hs, Weigh Yourself Daily Contacting the DR. after DC Call your doctor for: If your condition worsens Treatment/Equipment after DC Adaptive Equipment Issued: None Warfarin Follow-Up Warfarin Follow UP: SEE PCP THIS WEEK, ATTEND SUBSTANCE TREATMENT DAILY NAMAN WATSON MD Apr 05, 2020 11:41
[2020-04-05] MEDS ORDERED: BISACODYL 5 MG TABLET.DR. PO PRN (12:45)
[2020-04-05] MEDS ORDERED: POLYETHYLENE GLYCOL 3350 17 GM PACKET. PO SCH (12:45)
--- NOTE | 2020-04-05 13:00 | PDOC ---
Date of Service: DATE: 04/05/20 TIME: 12:55 Subjective: Subjective: Tolerating diet. Burning upper abdominal pain earlier today. Also discomfort in suprapubic area and sides of abdomen - thinks related to constipation. Last stool very small on Fri or Sat. Usually takes daily Miralax or Ex Lax at home. Objective: Objective: Nurse called earlier about constipation and we discussed again later - verbal order for Dulcolax and Miralax. D/w cardiology - c/o swelling in face, one LE, one UE. Vital Signs: Vital Signs Date Time Temp Pulse Resp B/P (MAP) Pulse Ox O2 Delivery O2 Flow Rate FiO2 04/05/20 11:17 97.1 70 16 132/68 (89) 97 Room Air 97.1 Labs: BLOOD CULTURE Preliminary NO GROWTH AFTER 3 DAYS PE: GEN: NAD LUNGS: CTAB HEART: RRR ABD: quiet BS, soft, suprapubic discomfort, flank pain - says has chronic pain here and in lower back NEURO/PSYCH: A & O 3 A/P: Elevated lipase, doubt pancreatitis - resolved Dyspepsia/daily emesis/GERD - plans for outpt scope Chronic constipation +cocaine COVID-19 negative 04/01 -- Dulcolax, Miralax. DC per primary. Justicifation of Admission Dx: Justifications for Admission: Justification of Admission Dx: Yes KARLY PACHECO Apr 05, 2020 13:00
--- NOTE | 2020-04-05 15:35 | NUR ---
Discharge Note: OMER BRAVO Discharge instructions and discharge home medications reviewed with Patient and a copy given. All questions have been answered and understanding verbalized. The following instructions and handouts were given: diet, activity, medication list and follow up instructions provided. Discontinued lines and drains: Peripheral IV discontinued and catheter intact. Patient discharged to Home or Self Care withFamily Membervia Wheelchair
--- NOTE | 2020-04-05 17:14 | NUR ---
SW following for discharge planning. Spoke with RN and reviewed chart. Pt to discharge home self-care today, 04/05. No further SW needs identified at this time.
== END 2020-04-05 15:15 | disposition home or self-care (01) | DRG 438 ==
LOC: ER 16:57 → 6 SOUTH 04-02 00:01
PROVIDERS: ADMIT Internal Medicine; ATTEND Internal Medicine
DX: K85.30 Drug induced acute pancreatitis without necrosis or infection (principal); E43 Unspecified severe protein-calorie malnutrition; I50.31 Acute diastolic (congestive) heart failure; E87.2 Acidosis; Z68.41 Body mass index [BMI] 40.0-44.9, adult; F14.129 Cocaine abuse with intoxication, unspecified; K85.90 Acute pancreatitis without necrosis or infection, unspecified; Z20.828 Contact with and (suspected) exposure to other viral communicable diseases; F17.210 Nicotine dependence, cigarettes, uncomplicated; Z96.612 Presence of left artificial shoulder joint; Z96.651 Presence of right artificial knee joint; M51.34 Other intervertebral disc degeneration, thoracic region; M51.36 Other intervertebral disc degeneration, lumbar region; E78.5 Hyperlipidemia, unspecified; J44.9 Chronic obstructive pulmonary disease, unspecified; I25.10 Atherosclerotic heart disease of native coronary artery without angina pectoris; F10.10 Alcohol abuse, uncomplicated; K21.9 Gastro-esophageal reflux disease without esophagitis; E87.6 Hypokalemia; F43.10 Post-traumatic stress disorder, unspecified; F41.9 Anxiety disorder, unspecified; F32.9 Major depressive disorder, single episode, unspecified; M10.9 Gout, unspecified; K57.90 Diverticulosis of intestine, part unspecified, without perforation or abscess without bleeding; K58.9 Irritable bowel syndrome, unspecified; I11.0 Hypertensive heart disease with heart failure; K59.09 Other constipation; E66.9 Obesity, unspecified; Z88.1 Allergy status to other antibiotic agents; Z88.5 Allergy status to narcotic agent; Z91.040 Latex allergy status; I25.2 Old myocardial infarction; Z98.42 Cataract extraction status, left eye; Z98.41 Cataract extraction status, right eye
CPT/HCPCS: 36415; 70450; 71045; 71275; 74174; 80053; 80061; 80307; 81001; 82550; 83605; 83690; 83735; 83880; 84484; 85025; 85379; 85610; 87040; 87086; 90471; 90686; 93005; 93971; 96361; 96365; 96375; C9113; J1200; J1940; J2543; J2930; J3010; J3480; J3490; J7030; Q9967; U0003; 99285-25; G0378; J7613; J7626

== ENCOUNTER → 2020-05-31 | Outpatient (CLI) | payer MEDICAID ==
[~2020-05-31] MED LIST changes: +ALPR1TAB2 PO; +ASPI-886 PO; +CETI10TA74 PO; +CLOT45CR4 VG; +DOCU-153 PO; +DULO30CA2 PO; +FURO-69 PO; +LISI10TA2 PO; +NAPR500T8 PO; +OXYC1TAB19 PO; +OXYC5CAP PO; +PANT40TA77 PO; +SPIR25TA5 PO; +TRAZ-118 PO; +vitamin d
== END ==
LOC: SPEC 16:48
PROVIDERS: ATTEND Obstetrics & Gynecology
DX: N89.8 Other specified noninflammatory disorders of vagina (principal)
CPT/HCPCS: Q0111

== ENCOUNTER 2020-09-20 23:17 | Emergency (ER) | payer MEDICAID ==
[~2020-09-20] VITALS: Ht 149.9 cm; Wt 93.0 kg
[~2020-09-20 23:17] MED LIST changes: +LISI10TA16 PO; -LISI10TA2 PO
--- NOTE | 2020-09-21 02:00 | EKG ---
[facility] [address] [place] [address] Test Date: 2020-09-21 Test Time: 01:53:07 Pat Name: OMER BRAVO Department: Room: Gender: F [employer]: : 1965 Requested By: ANTWON ZIMMERMAN Order Number: [id number] Reading MD: Measurements Intervals [place] Rate: 53 P: 46 MT: 152 QRS: 3 QRSD: 66 T: 76 QT: 458 QTc: 432 Interpretive Statements SINUS RHYTHM QRS(T) CONTOUR ABNORMALITY CONSISTENT WITH ANTEROSEPTAL INFARCT PROBABLY OLD T ABNORMALITY IN HIGH LATERAL LEADS ABNORMAL ECG RI6.01 No previous ECG available for comparison
--- NOTE | 2020-09-21 02:24 | RAD ---
INDICATION: Reason: SOA / Spl. Instructions: / History: COMPARISON: March 2020 FINDINGS: Single view of chest obtained. Left shoulder arthroplasty. Cardiac silhouette is again enlarged. Left lung base is not well evaluate d secondary to overlying cardiac silhouette obscuring. No definite consolidation elsewhere in the garry gs. IMPRESSION: * Prominent cardiac silhouette is again seen without a definite new region of consolidation. Electronically signed by: Chito Coleman MD (09/21/2020 2:22 AM) [id number]
[2020-09-21 03:25] LABS: BASO # 0.1 x10^3/uL (0.0-0.2); BASO % 1 % (0-3); EOS # 0.1 x10^3/uL (0.0-0.7); EOS % 2 % (0-3); HEMATOCRIT 45.9 % (36.0-47.0); HEMOGLOBIN 15.9 g/dL (12.0-15.5); LYMPH # 1.9 x10^3/uL (1.0-4.8); LYMPH % 32 % (24-48); MEAN CORPUSCULAR HEMOGLOBIN 32 pg (25-35); MEAN CORPUSCULAR HGB CONC 35 g/dL (31-37); MEAN CORPUSCULAR VOLUME 93 fL (79-100); MONO # 0.7 x10^3/uL (0.0-1.1); MONO % 12 % (0-9); NEUT # 3.1 x10^3/uL (1.8-7.7); NEUT % 53 % (31-73); PLATELET COUNT 284 x10^3/uL (140-400); RED BLOOD COUNT 4.92 x10^6/uL (3.50-5.40); RED CELL DISTRIBUTION WIDTH 13.3 % (11.5-14.5); WHITE BLOOD COUNT 5.8 x10^3/uL (4.0-11.0)
[2020-09-21 03:37] LABS: CALCIUM 9.1 mg/dL (8.5-10.1); CREATININE 0.7 mg/dL (0.6-1.0); GFR 87.5; POTASSIUM 4.3 mmol/L (3.5-5.1)
[2020-09-21 03:44] LABS: BILIRUBIN,URINE SMALL (NEG); CLARITY,URINE CLEAR; COLOR,URINE YELLOW; NITRITE,URINE NEGATIVE (NEG); PROTEIN,URINE NEGATIVE (NEG-TRACE)
[2020-09-21 03:44] LABS: ALBUMIN 3.4 g/dL (3.4-5.0); ALBUMIN/GLOBULIN RATIO 1.1 (1.0-1.7); TOTAL BILIRUBIN 0.6 mg/dL (0.2-1.0); TOTAL PROTEIN 6.6 g/dL (6.4-8.2)
[2020-09-21 03:50] LABS: AMPHETAMINE/METHAMPHETAMINE NEG (NEG); BARBITURATES NEG (NEG); BENZODIAZEPINES NEG (NEG); CANNABINOIDS NEG (NEG); COCAINE POS (NEG); METHADONE NEG (NEG); OPIATES NEG (NEG); PHENCYCLIDINE NEG (NEG)
[2020-09-21 03:53] LABS: RBC,URINE 0 /HPF (0-2)
[2020-09-21 03:54] LABS: AMORPHOUS SEDIMENT,UR PRESENT /HPF; BACTERIA,URINE MODERATE /HPF (0-FEW)
--- NOTE | 2020-09-21 04:19 | PHYS DOC ---
Past Medical History Past Medical History: Anxiety, Asthma, Bipolar, CHF, COPD, Depression, Hypertension, Other Additional Past Medical Histor: cocaine abuse Past Surgical History: Other Additional Past Surgical Histo: dental, L shoulder, cataracts, R knee Smoking Status: Current Every Day Smoker Alcohol Use: Rarely General Adult EDM: Chief Complaint: COUGH HPI: HPI: Patient is a 55 year old presented to the ER for multiple complaints. She said she used cocaine a few days ago. She has have back pain, joint pain, nonproductive cough, right side chest pain with cough or breathing, having mild headache with congestion, bodyache, joint pains. She felt like her legs are swelling. She denied any any nausea or vomiting. She denied any fever. She could not cough up anything. Overall, she is just not feeling well. Review of Systems: Review of Systems: Constitutional: Denies fever or chills. [] Eyes: Denies change in visual acuity. [] HENT: Denies nasal congestion or sore throat. [] Respiratory: Positive for cough or shortness of breath. [] Cardiovascular: Denies chest pain or edema. [] GI: Denies abdominal pain, nausea, vomiting, bloody stools or diarrhea. [] : Denies dysuria. [] Musculoskeletal: Positive for back pain, joint pain, bodyache. Integument: Denies rash. [] Neurologic: Denies headache, focal weakness or sensory changes. [] Endocrine: Denies polyuria or polydipsia. [] Lymphatic: Denies swollen glands. [] Psychiatric: Denies depression or anxiety. [] Heart Score: C/O Chest Pain: N/A Risk Factors: Risk Factors: DM, Current or recent (<one month) smoker, HTN, HLP, family history of CAD, obesity. Risk Scores: Score 0 - 3: 2.5% MACE over next 6 weeks - Discharge Home Score 4 - 6: 20.3% MACE over next 6 weeks - Admit for Clinical Observation Score 7 - 10: 72.7% MACE over next 6 weeks - Early Invasive Strategies Allergies: Allergies: Allergies Coded Allergies Type Severity Reaction Last Updated Verified ciprofloxacin Allergy Severe rash 12/10/17 Yes morphine Allergy Severe red vein 12/10/17 Yes latex Allergy Intermediate Rash 12/10/17 Yes Physical Exam: PE: Constitutional: Well developed, well nourished, no acute distress, non-toxic appearance. [] HENT: Normocephalic, atraumatic, bilateral external ears normal, oropharynx moist, no oral exudates, nose normal. [] Eyes: PERRLA, EOMI, conjunctiva normal, no discharge. [] Neck: Normal range of motion, no tenderness, supple, no stridor. [] Cardiovascular:Heart rate regular rhythm, no murmur [] Lungs & Thorax: Bilateral breath sounds clear to auscultation [] Abdomen: Bowel sounds normal, soft, no tenderness, no masses, no pulsatile masses. [] Skin: Warm, dry, no erythema, no rash. [] Back: No tenderness, no CVA tenderness. [] Extremities: No tenderness, no cyanosis, no clubbing, ROM intact, NO PITTING EDEMA, BOTH CALFS ARE NONTENDER, NO EVIDENCE OF DVT. Neurologic: Alert and oriented X 3, normal motor function, normal sensory function, no focal deficits noted. [] Psychologic: Affect normal, judgement normal, mood normal. [] Current Patient Data: Labs: Laboratory Tests Test 09/21/20 03:13 09/21/20 03:28 White Blood Count 5.8 x10^3/uL (4.0-11.0) Red Blood Count 4.92 x10^6/uL (3.50-5.40) Hemoglobin 15.9 g/dL (12.0-15.5) H Hematocrit 45.9 % (36.0-47.0) Mean Corpuscular Volume 93 fL (79-100) Mean Corpuscular Hemoglobin 32 pg (25-35) Mean Corpuscular Hemoglobin Concent 35 g/dL (31-37) Red Cell Distribution Width 13.3 % (11.5-14.5) Platelet Count 284 x10^3/uL (140-400) Neutrophils (%) (Auto) 53 % (31-73) Lymphocytes (%) (Auto) 32 % (24-48) Monocytes (%) (Auto) 12 % (0-9) H Eosinophils (%) (Auto) 2 % (0-3) Basophils (%) (Auto) 1 % (0-3) Neutrophils # (Auto) 3.1 x10^3/uL (1.8-7.7) Lymphocytes # (Auto) 1.9 x10^3/uL (1.0-4.8) Monocytes # (Auto) 0.7 x10^3/uL (0.0-1.1) Eosinophils # (Auto) 0.1 x10^3/uL (0.0-0.7) Basophils # (Auto) 0.1 x10^3/uL (0.0-0.2) Sodium Level 143 mmol/L (136-145) Potassium Level 4.3 mmol/L (3.5-5.1) Chloride Level 107 mmol/L (98-107) Carbon Dioxide Level 28 mmol/L (21-32) Anion Gap 8 (6-14) Blood Urea Nitrogen 16 mg/dL (7-20) Creatinine 0.7 mg/dL (0.6-1.0) Estimated GFR (Cockcroft-Gault) 87.5 BUN/Creatinine Ratio 23 (6-20) H Glucose Level 154 mg/dL (70-99) H Calcium Level 9.1 mg/dL (8.5-10.1) Magnesium Level 2.2 mg/dL (1.8-2.4) Total Bilirubin 0.6 mg/dL (0.2-1.0) Aspartate Amino Transferase (AST) 14 U/L (15-37) L Alanine Aminotransferase (ALT) 32 U/L (14-59) Alkaline Phosphatase 100 U/L (46-116) Troponin I Quantitative < 0.017 ng/mL (0.000-0.055) KJ-Ngx-R-Type Natriuretic Peptide 70 pg/mL (0-124) Total Protein 6.6 g/dL (6.4-8.2) Albumin 3.4 g/dL (3.4-5.0) Albumin/Globulin Ratio 1.1 (1.0-1.7) Urine Collection Type Unknown Urine Color Yellow Urine Clarity Clear Urine pH 6.0 (<5.0-8.0) Urine Specific [place] 1.025 (1.000-1.030) Urine Protein Negative mg/dL (NEG-TRACE) Urine Glucose (UA) Negative mg/dL (NEG) Urine Ketones (Stick) Negative mg/dL (NEG) Urine Blood Negative (NEG) Urine Nitrite Negative (NEG) Urine Bilirubin Small (NEG) Urine Urobilinogen Dipstick 1.0 mg/dL (0.2 mg/dL) Urine Leukocyte Esterase Negative (NEG) Urine RBC 0 /HPF (0-2) Urine WBC 1-4 /HPF (0-4) Urine Squamous Epithelial Cells Mod /LPF Urine Amorphous Sediment Present /HPF Urine Bacteria Moderate /HPF (0-FEW) Urine Mucus Mod /LPF Urine Opiates Screen Neg (NEG) Urine Methadone Screen Neg (NEG) Urine Barbiturates Neg (NEG) Urine Phencyclidine Screen Neg (NEG) Urine Amphetamine/Methamphetamine Neg (NEG) Urine Benzodiazepines Screen Neg (NEG) Urine Cocaine Screen Pos (NEG) Urine Cannabinoids Screen Neg (NEG) Urine Ethyl Alcohol Neg (NEG) Laboratory Tests 09/21/20 03:13 Laboratory Tests 09/21/20 03:13 Vital Signs: Vital Signs Date Time Temp Pulse Resp B/P (MAP) Pulse Ox O2 Delivery O2 Flow Rate FiO2 09/21/20 03:00 97.7 70 20 169/93 (118) 97 Room Air 97.7 EKG: EKG: EKG was done at 153, heart rate 53 bpm, sinus rhythm, no ST segment elevation. Radiology/Procedures: Radiology/Procedures: [][facility] [address] [place] [address] IMAGING REPORT Signed PATIENT: OMRE BRAVO ACCOUNT: [id number] : 1965 LOCATION: ER AGE: 55 SEX: F EXAM STATUS: REG ER ORD. PHYSICIAN: ANTWON ZIMMERMAN DO REASON: SOA PROCEDURE: PORTABLE CHEST 1V INDICATION: Reason: SOA / Spl. Instructions: / History: COMPARISON: March 2020 FINDINGS: Single view of chest obtained. Left shoulder arthroplasty. Cardiac silhouette is again enlarged. Left lung base is not well evaluated secondary to overlying cardiac silhouette obscuring. No definite consolidation elsewhere in the lungs. IMPRESSION: * Prominent cardiac silhouette is again seen without a definite new region of consolidation. Electronically signed by: Wellington Phillips MD (09/21/2020 2:22 AM) [id number] DICTATED and SIGNED BY: WELLINGTON PHILLIPS MD DATE: 09/21/20 [id number] 0 Course & Med Decision Making: Course & Med Decision Making Pertinent Labs and Imaging studies reviewed. (See chart for details) [] Dragon Disclaimer: Dragon Disclaimer: This electronic medical record was generated, in whole or in part, using a voice recognition dictation system. Departure Departure Impression: Primary Impression: Upper respiratory infection Disposition: HOME / SELF CARE / HOMELESS Condition: STABLE Referrals: ROSY OLSON MD (PCP) Patient Instructions: Upper Respiratory Infection, Adult Additional Instructions: Thank you for visiting our Emergency Department. We appreciate you trusting us with your care. If any additional problems come up don't hesitate to return to visit us. Please follow up with your primary care provider so they can plan additional care if needed and know about the problem that you had. If symptoms worsen come back to the Emergency Department. Any concerning symptoms that start such as chest pain, shortness of air, weakness or numbness on one side of the body, running high fevers or any other concerning symptoms return to the ER. ANTWON ZIMMERMAN DO September 21, 2020 04:19
[2020-09-21 04:43] VITALS: BP 132/73
== END 2020-09-21 05:15 | disposition home or self-care (01) ==
LOC: ER 23:17
DX: J06.9 Acute upper respiratory infection, unspecified (principal); F31.9 Bipolar disorder, unspecified; I11.0 Hypertensive heart disease with heart failure; I50.9 Heart failure, unspecified; J44.9 Chronic obstructive pulmonary disease, unspecified; F17.200 Nicotine dependence, unspecified, uncomplicated; Z88.1 Allergy status to other antibiotic agents; Z88.5 Allergy status to narcotic agent; Z91.040 Latex allergy status
CPT/HCPCS: 36415; 71045; 80053; 80307; 81001; 83735; 83880; 84484; 85025; 87086; 93005; 99285-25